=== PATIENT | male | born 1980 | race Caucasian/White ===

== ENCOUNTER 2024-01-04 22:23 | Inpatient (IN) ==
[2024-01-04] MEDS: OPTIRAY 320 125ml IV ONE (22:30)
--- NOTE | 2024-01-04 22:34 | Emergency Department Note ---
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 Again last about 5 to 7 minutes. Was sitting in the dining [place] and they were having a dance republican but he was just sitting there. No alcohol use tonight. Was sitting and leaning a little bit on his right hand when he went up to just 1 but has significant numbness and difficulty using his right hand and arm. [place] a little bit off and thought his speech was somewhat slurred. Went to the health [place] and was noted to have a blood pressure in the 180s systolic. Normally healthy gentleman not on blood pressure medicine. No syncope. States symptoms have resolved with the numbness and weakness. No issues in the legs or left arm. Speech is improved. Still feeling a bit off but a bit hard to describe exactly what this means. Did have a bit of a cough and had some TheraFlu before dinner. Has been stressed him with the busy Season and not sleeping the best. No rashes reported but exposure to ticks. PAST MEDICAL HISTORY: As noted above MEDICATIONS: None SOCIAL HISTORY: PHYSICAL EXAM: GENERAL: alert and oriented in no acute distress on stretcher Head: normocephalic and atraumatic EYES: No injection, discharge or icterus. PERRL, EOMI. NECK: Trachea midline. ENT: Mucous membranes pink and moist. LUNGS: Airway patent. No retractions or tachypnea HEART: Regular rate and rhythm. SKIN: Acyanotic, warm, dry, without rashes EXTREMITIES: Without swelling, tenderness or deformity NEUROLOGICAL: No focal deficits. No aphasia. No facial droop or slurred speech. No finger-nose ataxia. Normal strength and tone in the extremities. Sensation to gross touch normal. Ambulatory. EK bpm normal sinus rhythm. No PVC or PAC. No acute ST segment elevation or depression with a QTc of 425. CONTINUOUS CARDIAC MONITORING: was ordered and showed a heart rate of 60s to 70s bpm in normal sinus rhythm Patient's laboratory studies and imaging reviewed. Differential includes Infection, dehydration, metabolic abnormality, hypo/hyperglycemia, electrolyte disturbance, anemia, hypoxia, cardiac sources, intracerebral event, toxicologic, neurologic, as well as other pathologies. IMPRESSION/MEDICAL DECISION MAKING: Made a stroke alert as he was still feeling somewhat off but appears well at this time. No finger-nose ataxia or aphasia or slurred speech. No headache. Moving extremities well and no numbness or tingling appreciable. Able to ambulate and not significantly dizzy. Still hypertensive here. Basic blood work and Lyme screen sent. Given some IV fluid and aspirin as CTs of the head without evidence of acute intracranial bleed mass or vascular abnormality notable by radiology read. Doubt ICH/SAH. Not a thrombolytic candidate given his minimal to no symptoms at this time. It is difficult to quantify what not feeling what exactly is but that he is having some ongoing symptoms is a little bit concerning. As such I discussed with the [facility] hospitalist for further evaluation here and workup. Patient agreeable. Will not aggressively treat blood pressure in case this is CVA to allow for any progressive hypertensive but doubt hypertensive emergency or press syndrome. White blood cell count is reassuring and I doubt sepsis or meningitis. DIAGNOSIS: Strokelike symptoms, hypertension DISPOSITION: Hospitalist will evaluate Patient was agreeable with this plan. Past Med/Surg History Problem List (Updated 01/04/24 @ 23:31 by Mamadou Marcelo M.D.) HTN (hypertension) (Acute) Stroke-like symptoms (Acute) Social History Smoking Status: Never smoker Preferred Language: Belarusian Feels Safe at Home: Yes Allergies Allergies Allergy/AdvReac Type Severity Reaction Status Date / Time No Known Allergies Allergy Verified 01/04/24 23:16 Home Meds Home Medications Medication Instructions Recorded Confirmed No Known Home Medications 01/04/24 01/04/24 Results & Data (ED) Vital Signs Vital Signs - 24 hr 01/04/24 22:37 01/04/24 22:57 01/04/24 23:00 Temperature 36.6 C Temperature Source Oral Pulse Rate 81 66 Pulse Rate [Apical] 63 Pulse Rhythm [Apical] Regular Pulse Strength [Apical] Normal Respiratory Rate 18 16 Respiratory Effort / Characteristics Non-Labored Spontaneous Non-Labored Spontaneous Respiratory Depth Normal Normal Respiratory Pattern Regular Blood Pressure 180/111 H Blood Pressure [Right Arm] 135/98 Blood Pressure Mean 134 Blood Pressure Mean [Right Arm] 110 Blood Pressure Position [Right Arm] Semi-fowlers Pulse Oximetry 98 97 Oxygen Delivery Method Room Air Room Air Sepsis Recent Fever Within 48 Hours No Sepsis New/Unexplained Change in Mental Status No Sepsis Action Taken by Nursing No Action Required Laboratory Data 01/04/24 22:38 01/04/24 22:38 Lab Results 01/04/24 01/04/24 01/04/24 Range/Units 22:37 22:38 22:40 WBC 6.02 (4.8-10.8) K/ul RBC 4.86 (4.70-6.10) M/uL Hgb 14.2 (14.0-18.0) g/dl POC Hgb (14.0-18.0) g/dl Hct 41.8 L (42.0-52.0) % POC Hct (42-52) % MCV 86.0 (80.0-100.0) fL MCH 29.2 (25.0-34.0) pg MCHC 34.0 (32.0-36.0) g/dL RDW Std Deviation 37.0 (36.4-46.3) fL RDW Coeff of Josué 11.9 (11.5-14.5) % Plt Count 185 (130-400) K/uL MPV 9.3 L (9.4-12.4) fL Immature Gran % (Auto) 0.3 % Neut % (Auto) 61.8 % Lymph % (Auto) 24.4 % [place] % (Auto) 10.8 % Eos % (Auto) 2.0 % Baso % (Auto) 0.7 % Neut # (Auto) 3.72 (1.40-6.50) K/uL Lymph # (Auto) 1.47 (1.20-3.40) K/uL [place] # (Auto) 0.65 H (0.11-0.59) K/uL Eos # (Auto) 0.12 (0.00-0.50) K/uL Baso # (Auto) 0.04 (0.00-0.20) K/uL Immature Gran # (Auto) 0.02 (0.01-0.20) K/uL PT Cancelled INR Cancelled APTT Cancelled PTT Ratio Cancelled POC Sodium (135-144) mmol/L POC Potassium (3.3-5.0) mmol/L POC Chloride (101-112) mmol/L POC Total CO2 (24-31) mmol/L POC Anion Gap (16-25) mmol/L POC BUN (7-18) mg/dl POC Creatinine (0.6-1.3) mg/dl POC Glucose 99 (70-99) mg/dl POC Glucose (other) (70-99) mg/dl POC Ioniz Calcium [place] (1.12-1.32) mmol/l Urine Color Urine Appearance (Clear) Urine pH (4.5-7.5) Ur Specific [place] (1.000-1.030) Urine Protein (Negative) Urine Glucose (UA) (Negative) Urine Ketones (Negative) Urine Blood (Negative) Urine Nitrite (Negative) Urine Bilirubin (Negative) Urine Urobilinogen (Negative) Ur Leukocyte Esterase (Negative) Blood Type B Negative Antibody Screen NEGATIVE 01/04/24 01/04/24 Range/Units 22:41 22:42 WBC (4.8-10.8) K/ul RBC (4.70-6.10) M/uL Hgb (14.0-18.0) g/dl POC Hgb 13.6 L (14.0-18.0) g/dl Hct (42.0-52.0) % POC Hct 40 L (42-52) % MCV (80.0-100.0) fL MCH (25.0-34.0) pg MCHC (32.0-36.0) g/dL RDW Std Deviation (36.4-46.3) fL RDW Coeff of Josué (11.5-14.5) % Plt Count (130-400) K/uL MPV (9.4-12.4) fL Immature Gran % (Auto) % Neut % (Auto) % Lymph % (Auto) % [place] % (Auto) % Eos % (Auto) % Baso % (Auto) % Neut # (Auto) (1.40-6.50) K/uL Lymph # (Auto) (1.20-3.40) K/uL [place] # (Auto) (0.11-0.59) K/uL Eos # (Auto) (0.00-0.50) K/uL Baso # (Auto) (0.00-0.20) K/uL Immature Gran # (Auto) (0.01-0.20) K/uL PT INR APTT PTT Ratio POC Sodium 136 (135-144) mmol/L POC Potassium 3.8 (3.3-5.0) mmol/L POC Chloride 97 L (101-112) mmol/L POC Total CO2 27 (24-31) mmol/L POC Anion Gap 17.0 (16-25) mmol/L POC BUN 12 (7-18) mg/dl POC Creatinine 1.1 (0.6-1.3) mg/dl POC Glucose (70-99) mg/dl POC Glucose (other) 102 H (70-99) mg/dl POC Ioniz Calcium [place] 1.16 (1.12-1.32) mmol/l Urine Color Yellow Urine Appearance Clear (Clear) Urine pH 7.0 (4.5-7.5) Ur Specific [place] 1.011 (1.000-1.030) Urine Protein Negative (Negative) Urine Glucose (UA) Negative (Negative) Urine Ketones Negative (Negative) Urine Blood Negative (Negative) Urine Nitrite Negative (Negative) Urine Bilirubin Negative (Negative) Urine Urobilinogen Negative (Negative) Ur Leukocyte Esterase Negative (Negative) Blood Type Antibody Screen Administered Medications Discontinued Medications Aspirin (Aspirin Chew 324 Mg) 324 mg PO NOW STA Stop: 01/04/24 22:59 Last Admin: 01/04/24 23:26 Dose: 324 mg Documented By: KEZIA Sodium Chloride (Nss) 500 mls @ 999 mls/hr IV .Q31M ONE Stop: 01/04/24 23:26 Last Admin: 01/04/24 23:21 Dose: 999 mls/hr Documented By: KEZIA Ioversol (Optiray 320 125ml) 118 ml IV ONCE ONE Stop: 01/04/24 22:30 Last Admin: 01/04/24 22:30 Dose: 118 ml Documented By: [facility] Data Radiologist's Impression: Head CT 01/04/24 22:19 CR Exam(s): CT HEAD Without Contrast EXAM: CT Head Without Intravenous Contrast CLINICAL HISTORY: Neuro deficit, acute stroke suspected. TECHNIQUE: Axial computed tomography images of the head/brain without intravenous contrast. CTDI is 47.66 mGy and DLP is 1287.52 mGy-cm. Automated exposure control was utilized for the study. A dose lowering technique was utilized adhering to the principles of ALARA. COMPARISON: No relevant prior studies available. FINDINGS: Brain: Unremarkable. No significant white matter disease. No intracranial hemorrhage, mass-effect or midline shift. No abnormal extra axial fluid. No evidence of acute infarct. Ventricles: Unremarkable. No ventriculomegaly. Bones/joints: Unremarkable. No acute fracture. Soft tissues: Unremarkable. Sinuses: Unremarkable as visualized. No acute sinusitis. Mastoid air cells: Unremarkable as visualized. No mastoid effusion. IMPRESSION: No acute intracranial finding. Communications: Call Doctor Stroke Electronically signed by: Laurence Cartagena MD 01/04/24 22:45 PM Head CTA 01/04/24 22:19 CR Exam(s): CTA HEAD With Contrast IV Amt: 118 cc opti 320 EXAM: CT Angiography Head With Intravenous Contrast CLINICAL HISTORY: neuro deficit, acute stroke suspected. TECHNIQUE: Axial computed tomographic angiography images of the head with intravenous contrast. 3D and MIPS images were created and reviewed. CTDI is 47.66 mGy and DLP is 1287.52 mGy-cm. Automated exposure control was utilized for the study. A dose lowering technique was utilized adhering to the principles of ALARA. MIP reconstructed images were created and reviewed. CONTRAST: Patient received 118 cc opti 320 of IV contrast COMPARISON: No relevant prior studies available. FINDINGS: Right internal carotid artery: No acute findings. Intracranial segment is patent with no significant stenosis. No aneurysm. Right anterior cerebral artery: Unremarkable. No occlusion or significant stenosis. No aneurysm. Right middle cerebral artery: Unremarkable. No occlusion or significant stenosis. No aneurysm. Right posterior cerebral artery: Unremarkable. No occlusion or significant stenosis. No aneurysm. Right vertebral artery: Unremarkable as visualized. Left internal carotid artery: No acute findings. Intracranial segment is patent with no significant stenosis. No aneurysm. Left anterior cerebral artery: Unremarkable. No occlusion or significant stenosis. No aneurysm. Left middle cerebral artery: Unremarkable. No occlusion or significant stenosis. No aneurysm. Left posterior cerebral artery: Unremarkable. No occlusion or significant stenosis. No aneurysm. Left vertebral artery: Unremarkable as visualized. Basilar artery: Unremarkable. No occlusion or significant stenosis. No aneurysm. IMPRESSION: No acute finding of the arteries of the head. Communications: Call Doctor Stroke Electronically signed by: Laurence Cartagena MD 01/04/24 22:59 PM Neck CTA 01/04/24 22:19 CR Exam(s): CTA NECK With Contrast IV Amt: 118 cc opti 320 EXAM: CT Angiography Neck With Intravenous Contrast CLINICAL HISTORY: Neuro deficit, acute stroke suspected. TECHNIQUE: Routine carotid CT angiography protocol was performed with intravenous contrast. NASCET criteria using the distal ICAs for comparison were used for evaluation of stenoses. MIPS images were created and reviewed. CTDI is 47.66 mGy and DLP is 1287.52 mGy-cm. Automated exposure control was utilized for the study. A dose lowering technique was utilized adhering to the principles of ALARA. MIP reconstructed images were created and reviewed. CONTRAST: Patient received 118 cc opti 320 of IV contrast COMPARISON: None. FINDINGS: VASCULATURE: Right common carotid artery: Unremarkable. No occlusion or significant stenosis. No dissection. Right internal carotid artery: Unremarkable. Extracranial segment is patent with no occlusion or significant stenosis. No dissection. Right external carotid artery: Unremarkable. No occlusion. Right vertebral artery: Unremarkable. No occlusion or significant stenosis. No dissection. Left common carotid artery: Unremarkable. No occlusion or significant stenosis. No dissection. Left internal carotid artery: Unremarkable. Extracranial segment is patent with no occlusion or significant stenosis. No dissection. Left external carotid artery: Unremarkable. No occlusion. Left vertebral artery: Unremarkable. No occlusion or significant stenosis. No dissection. NECK: Bones/joints: Unremarkable. No acute fracture. Soft tissues: Unremarkable. Lung apices: Clear. CAROTID STENOSIS REFERENCE USING NASCET CRITERIA: % ICA stenosis = (1 - narrowest ICA diameter/diameter of distal cervical ICA) x 100. Mild - <50% stenosis. Moderate - 50-69% stenosis. Severe - 70-94% stenosis. Near occlusion - 95-99% stenosis. Occluded - 100% stenosis. IMPRESSION: No acute finding of the arteries of the neck. Communications: Call Doctor Stroke Electronically signed by: Laurence Cartagena MD 01/04/24 23:03 PM Discharge Plan Visit Data Chief Complaint: TIA Symptoms Stated Complaint: R ARM TINGLING/NUMB, SLURRED SPEECH, RESOLVED NOW ED Provider: Mamadou Marcelo Discharge Problem: Stroke-like symptoms, HTN (hypertension) Patient Disposition: Being Evaluated by Hospitalist Forms Stand Alone Forms: My ETC Education Prescriptions Prescriptions: No Action No Known Home Medications Referrals Referrals: PCP,NO [Primary Care Provider] -
--- NOTE | 2024-01-04 22:45 | CT Scan Report ---
Exam(s): CT HEAD Without Contrast EXAM: CT Head Without Intravenous Contrast CLINICAL HISTORY: Neuro deficit, acute stroke suspected. TECHNIQUE: Axial computed tomography images of the head/brain without intravenous contrast. CTDI is 47.66 mGy and DLP is 1287.52 mGy-cm. Automated exposure control was utilized for the study. A dose lowering technique was utilized adhering to the principles of ALARA. COMPARISON: No relevant prior studies available. FINDINGS: Brain: Unremarkable. No significant white matter disease. No intracranial hemorrhage, mass-effect or midline shift. No abnormal extra axial fluid. No evidence of acute infarct. Ventricles: Unremarkable. No ventriculomegaly. Bones/joints: Unremarkable. No acute fracture. Soft tissues: Unremarkable. Sinuses: Unremarkable as visualized. No acute sinusitis. Mastoid air cells: Unremarkable as visualized. No mastoid effusion. IMPRESSION: No acute intracranial finding. Communications: Call Doctor Stroke Electronically signed by: Laurence Cartagena MD 01/04/24 22:45 PM
[2024-01-04 22:53] LABS: Basophils # (auto) 0.04 K/uL (0.00-0.20); Basophils % (auto) 0.7 %; Eosinophils # (auto) 0.12 K/uL (0.00-0.50); Hematocrit (blood only) 41.8 % (42.0-52.0); Hemoglobin 14.2 g/dl (14.0-18.0); Immature Granulocytes # (auto) 0.02 K/uL (0.01-0.20); Immature Granulocytes % (auto) 0.3 %; Lymphocytes # (auto) 1.47 K/uL (1.20-3.40); Lymphocytes % (auto) 24.4 %; Mean Corpuscular Hemoglobin 29.2 pg (25.0-34.0); Mean Platelet Volume 9.3 fL (9.4-12.4); Monocytes # (auto) 0.65 K/uL (0.11-0.59); Monocytes % (auto) 10.8 %; Neutrophils # (auto) 3.72 K/uL (1.40-6.50); Neutrophils % (auto) 61.8 %; Platelet Count 185 K/uL (130-400); RDW Coefficient of Variation 11.9 % (11.5-14.5); Red Blood Count 4.86 M/uL (4.70-6.10); White Blood Count 6.02 K/ul (4.8-10.8)
[2024-01-04 22:53] LABS: iSTAT Creatinine 1.1 mg/dl (0.6-1.3); iSTAT Hemoglobin 13.6 g/dl (14.0-18.0); iSTAT Ionized Calcium 1.16 mmol/l (1.12-1.32); iSTAT Potassium 3.8 mmol/L (3.3-5.0)
[2024-01-04 22:56] LABS: Appearance Urine Clear (Clear); Bilirubin Urine Negative (Negative); Blood Urine Negative (Negative); Color Urine Yellow; Glucose Urine UA Negative (Negative); Ketones Urine Negative (Negative); Leukocyte Esterase Urine Negative (Negative); Nitrite Urine Negative (Negative); Protein Urine Negative (Negative); Specific Gravity Urine 1.011 (1.000-1.030); Urobilinogen Urine Negative (Negative)
--- NOTE | 2024-01-04 23:00 | CT Scan Report ---
Exam(s): CTA HEAD With Contrast IV Amt: 118 cc opti 320 EXAM: CT Angiography Head With Intravenous Contrast CLINICAL HISTORY: neuro deficit, acute stroke suspected. TECHNIQUE: Axial computed tomographic angiography images of the head with intravenous contrast. 3D and MIPS images were created and reviewed. CTDI is 47.66 mGy and DLP is 1287.52 mGy-cm. Automated exposure control was utilized for the study. A dose lowering technique was utilized adhering to the principles of ALARA. MIP reconstructed images were created and reviewed. CONTRAST: Patient received 118 cc opti 320 of IV contrast COMPARISON: No relevant prior studies available. FINDINGS: Right internal carotid artery: No acute findings. Intracranial segment is patent with no significant stenosis. No aneurysm. Right anterior cerebral artery: Unremarkable. No occlusion or significant stenosis. No aneurysm. Right middle cerebral artery: Unremarkable. No occlusion or significant stenosis. No aneurysm. Right posterior cerebral artery: Unremarkable. No occlusion or significant stenosis. No aneurysm. Right vertebral artery: Unremarkable as visualized. Left internal carotid artery: No acute findings. Intracranial segment is patent with no significant stenosis. No aneurysm. Left anterior cerebral artery: Unremarkable. No occlusion or significant stenosis. No aneurysm. Left middle cerebral artery: Unremarkable. No occlusion or significant stenosis. No aneurysm. Left posterior cerebral artery: Unremarkable. No occlusion or significant stenosis. No aneurysm. Left vertebral artery: Unremarkable as visualized. Basilar artery: Unremarkable. No occlusion or significant stenosis. No aneurysm. IMPRESSION: No acute finding of the arteries of the head. Communications: Call Doctor Stroke Electronically signed by: Laurence Cartagena MD 01/04/24 22:59 PM
--- NOTE | 2024-01-04 23:04 | CT Scan Report ---
Exam(s): CTA NECK With Contrast IV Amt: 118 cc opti 320 EXAM: CT Angiography Neck With Intravenous Contrast CLINICAL HISTORY: Neuro deficit, acute stroke suspected. TECHNIQUE: Routine carotid CT angiography protocol was performed with intravenous contrast. NASCET criteria using the distal ICAs for comparison were used for evaluation of stenoses. MIPS images were created and reviewed. CTDI is 47.66 mGy and DLP is 1287.52 mGy-cm. Automated exposure control was utilized for the study. A dose lowering technique was utilized adhering to the principles of ALARA. MIP reconstructed images were created and reviewed. CONTRAST: Patient received 118 cc opti 320 of IV contrast COMPARISON: None. FINDINGS: VASCULATURE: Right common carotid artery: Unremarkable. No occlusion or significant stenosis. No dissection. Right internal carotid artery: Unremarkable. Extracranial segment is patent with no occlusion or significant stenosis. No dissection. Right external carotid artery: Unremarkable. No occlusion. Right vertebral artery: Unremarkable. No occlusion or significant stenosis. No dissection. Left common carotid artery: Unremarkable. No occlusion or significant stenosis. No dissection. Left internal carotid artery: Unremarkable. Extracranial segment is patent with no occlusion or significant stenosis. No dissection. Left external carotid artery: Unremarkable. No occlusion. Left vertebral artery: Unremarkable. No occlusion or significant stenosis. No dissection. NECK: Bones/joints: Unremarkable. No acute fracture. Soft tissues: Unremarkable. Lung apices: Clear. CAROTID STENOSIS REFERENCE USING NASCET CRITERIA: % ICA stenosis = (1 - narrowest ICA diameter/diameter of distal cervical ICA) x 100. Mild - <50% stenosis. Moderate - 50-69% stenosis. Severe - 70-94% stenosis. Near occlusion - 95-99% stenosis. Occluded - 100% stenosis. IMPRESSION: No acute finding of the arteries of the neck. Communications: Call Doctor Stroke Electronically signed by: Laurence Cartagena MD 01/04/24 23:03 PM
[2024-01-04] MEDS: SODIUM CHLORIDE 0.9% 500 ML IV ONE (23:21)
[2024-01-04] MEDS: ASPIRIN CHEW 324 MG PO STA (23:26)
[2024-01-04 23:45] LABS: Albumin Level 4.3 gm/dl (3.4-5.0); BUN Creatinine Ratio 13.3 (10-20); Bilirubin,Total 0.7 mg/dl (0.2-1.0); Creatinine Clr Calc Pharmacy 125.2 ml/min; Est GFR (Non-African American) 94.1 ml/min; Globulin 2.1 gm/dl (2.5-4.0); Magnesium 1.9 mg/dl (1.7-2.4); Potassium 3.7 mmol/L (3.5-5.1); Total Protein 6.4 gm/dl (6.0-8.3); Troponin I High Sensitivity 4.4 pg/ml (0-20)
[2024-01-04 23:51] LABS: INR 1.1 (0.9-1.1); Partial Thromboplastin Ratio 0.9; Partial Thromboplastin Time 25 Seconds (21-31); Prothrombin Time 11.4 Seconds (9.0-12.0)
--- NOTE | 2024-01-05 02:28 | History & Physical Report ---
Date of Service January 05, 2024 Assessment & Plan (1) Stroke-like symptoms: Plan: 43-year-old male with no significant past medical history presents with strokelike symptoms. Patient was in a summer camp. There was dance constitution party but he was just sitting and watching. Around 9 PM he noticed numbness in his right hand. He could not uncork water bottle. At the time he also felt some slurred speech and slow speech. He went to [employer] and the blood pressure was checked and [id number]. Symptoms lasted 15 to 20 minutes. EMS was called and brought him here. Patient was a stroke alert. Initial workup unremarkable. Patient denies any headache. No dizziness. Says he was ambulating okay. No blurred vision . Has some congestion. And some sore throat. No cough. No fevers. No difficulty swallowing. No chest pain. No shortness of breath. No nausea. No sweating. No abdominal pain. Normal bowel and bladder movements. Currently resting comfortably and hemodynamically stable. He did some yard work recently but did not notice any tick bites. As per history father had AK in his 50s. As per patient his brother had SVTs in his 50s. strokelike symptoms. Transient numbness of the right hand and slurred speech. CT head, CTA head and neck unremarkable received aspirin. Will do full stroke workup with MRI scan, echo, PT OT and speech evaluation. Will start a statin. Will follow HbA1c and lipid profile. Telemetry lyme screen, anaplasma smear and Babesia smear neuroconsult in a.m. for further recommendations hypertension possible situational will monitor will follow echo DVT prophylaxis SCDs disposition telemetry full code. History of Present Illness Chief Complaint: Strokelike symptoms Primary Care Provider: NO PCP 43-year-old male with no significant past medical history presents with strokelike symptoms. Patient was in a summer camp. There was dance constitution party but he was just sitting and watching. Around 9 PM he noticed numbness in his right hand. He could not uncork water bottle. At the time he also felt some slurred speech and slow speech. He went to [employer] and the blood pressure was checked and [id number]. Symptoms lasted 15 to 20 minutes. EMS was called and brought him here. Patient was a stroke alert. Initial workup unremarkable. Patient denies any headache. No dizziness. Says he was ambulating okay. No blurred vision . Has some congestion. And some sore throat. No cough. No fevers. No difficulty swallowing. No chest pain. No shortness of breath. No nausea. No sweating. No abdominal pain. Normal bowel and bladder movements. Currently resting comfortably and hemodynamically stable. He did some yard work recently but did not notice any tick bites. As per history father had AK in his 50s. As per patient his brother had SVTs in his 50s. past medical history. As mentioned above past surgical history. None social history. No smoking. Alcohol rarely. No drug use. . Family history. Father had bladder cancer. Diabetes. AK in 50s. Brother had SVTs. Mother had hypertension. Allergies Allergy/AdvReac Type Severity Reaction Status Date / Time No Known Allergies Allergy Verified 01/04/24 23:16 Home Medications Medication Instructions Recorded Confirmed Type No Known Home Medications 01/04/24 01/04/24 History Past Med/Surg History Problem List (Updated 01/04/24 @ 23:31 by Mamadou Marcelo M.D.) HTN (hypertension) (Acute) Stroke-like symptoms (Acute) Social History Smoking Status: Never smoker Do You Dip or Chew Tobacco: No; Hx Alcohol Use: Yes Alcohol type: beer Hx Substance Use: No Preferred Language: Latvian Communication Ability: [employer] Required: No Beliefs That Will Affect Care: None Current Living Situation: Spouse Other Information That Helps Us Care for You: No Feels Safe at Home: Yes Safety Concerns: Feels Safe At This Time Assistive Devices: None Review of Systems Review of Systems: All systems reviewed & are unremarkable except as noted in HPI & below Physical Exam Physical Exam: General- Not in distress Head- atraumatic Eyes- EOMI. ENT- oropharynx clear Neck- supple, no JVD no carotid bruit Lungs- clear to auscultation no wheezing or crackles. Heart- regular rate and rhythm; no murmur, no gallop. Abdomen- normal bowel sounds, soft, nontender, no distension. Extremities- no pretibial edema, no erythema seen. Neuro- alert, oriented EOMI; no facial palsy; no dysarthria; motor 5/5 bilaterally; co ordination of movements normal, no pronator drift sensations intact Results & Data Results & Data Vital Signs (Past 12 Hours) Vital Signs Temp Pulse Pulse Resp BP BP Pulse Ox 01/04/24 23:00 63 16 135/98 97 01/04/24 22:57 66 01/04/24 22:37 36.6 C 81 18 180/111 H 98 O2 Del Method 01/04/24 23:00 Room Air 01/04/24 22:57 01/04/24 22:37 Room Air Diagnostic Findings Laboratory Results WBC 6.02 K/ul (4.8-10.8) 01/04/24 22:38 RBC 4.86 M/uL (4.70-6.10) 01/04/24 22:38 Hgb 14.2 g/dl (14.0-18.0) 01/04/24 22:38 POC Hgb 13.6 g/dl (14.0-18.0) L 01/04/24 22:41 Hct 41.8 % (42.0-52.0) L 01/04/24 22:38 POC Hct 40 % (42-52) L 01/04/24 22:41 MCV 86.0 fL (80.0-100.0) 01/04/24 22:38 MCH 29.2 pg (25.0-34.0) 01/04/24 22:38 MCHC 34.0 g/dL (32.0-36.0) 01/04/24 22:38 RDW Std Deviation 37.0 fL (36.4-46.3) 01/04/24 22:38 RDW Coeff of Josué 11.9 % (11.5-14.5) 01/04/24 22:38 Plt Count 185 K/uL (130-400) 01/04/24 22:38 MPV 9.3 fL (9.4-12.4) L 01/04/24 22:38 Immature Gran % (Auto) 0.3 % 01/04/24 22:38 Neut % (Auto) 61.8 % 01/04/24 22:38 Lymph % (Auto) 24.4 % 01/04/24 22:38 [place] % (Auto) 10.8 % 01/04/24 22:38 Eos % (Auto) 2.0 % 01/04/24 22:38 Baso % (Auto) 0.7 % 01/04/24 22:38 Neut # (Auto) 3.72 K/uL (1.40-6.50) 01/04/24 22:38 Lymph # (Auto) 1.47 K/uL (1.20-3.40) 01/04/24 22:38 [place] # (Auto) 0.65 K/uL (0.11-0.59) H 01/04/24 22:38 Eos # (Auto) 0.12 K/uL (0.00-0.50) 01/04/24 22:38 Baso # (Auto) 0.04 K/uL (0.00-0.20) 01/04/24 22:38 Immature Gran # (Auto) 0.02 K/uL (0.01-0.20) 01/04/24 22:38 PT 11.4 Seconds (9.0-12.0) 01/04/24 23:15 INR 1.1 (0.9-1.1) 01/04/24 23:15 APTT 25 Seconds (21-31) 01/04/24 23:15 PTT Ratio 0.9 01/04/24 23:15 POC Sodium 136 mmol/L (135-144) 01/04/24 22:41 Sodium 134 mmol/L (136-145) L 01/04/24 22:38 POC Potassium 3.8 mmol/L (3.3-5.0) 01/04/24 22:41 Potassium 3.7 mmol/L (3.5-5.1) 01/04/24 22:38 POC Chloride 97 mmol/L (101-112) L 01/04/24 22:41 Chloride 100 mmol/L (98-107) 01/04/24 22:38 Carbon Dioxide 29 mmol/L (21-32) 01/04/24 22:38 POC Total CO2 27 mmol/L (24-31) 01/04/24 22:41 Anion Gap 5 (3-11) 01/04/24 22:38 POC Anion Gap 17.0 mmol/L (16-25) 01/04/24 22:41 POC BUN 12 mg/dl (7-18) 01/04/24 22:41 BUN 13 mg/dl (6-23) 01/04/24 22:38 Creatinine 0.98 mg/dl (0.6-1.4) 01/04/24 22:38 POC Creatinine 1.1 mg/dl (0.6-1.3) 01/04/24 22:41 Est Cr Clr Drug Dosing 125.2 ml/min 01/04/24 22:38 Est GFR ( Amer) 109.0 ml/min 01/04/24 22:38 Est GFR (Non-Af Amer) 94.1 ml/min 01/04/24 22:38 BUN/Creatinine Ratio 13.3 (10-20) 01/04/24 22:38 Glucose 99 mg/dl (70-99(Fasting)) 01/04/24 22:38 POC Glucose 99 mg/dl (70-99) 01/04/24 22:37 POC Glucose (other) 102 mg/dl (70-99) H 01/04/24 22:41 Calcium 9.0 mg/dl (8.6-10.3) 01/04/24 22:38 POC Ioniz Calcium Guero 1.16 mmol/l (1.12-1.32) 01/04/24 22:41 Magnesium 1.9 mg/dl (1.7-2.4) 01/04/24 22:38 Total Bilirubin 0.7 mg/dl (0.2-1.0) 01/04/24 22:38 AST 22 U/L (13-39) 01/04/24 22:38 ALT 15 U/L (7-52) 01/04/24 22:38 Alkaline Phosphatase 56 U/L (34-104) 01/04/24 22:38 Troponin I High Sens 4.4 pg/ml (0-20) 01/04/24 22:38 Total Protein 6.4 gm/dl (6.0-8.3) 01/04/24 22:38 Albumin 4.3 gm/dl (3.4-5.0) 01/04/24 22:38 Globulin 2.1 gm/dl (2.5-4.0) L 01/04/24 22:38 Albumin/Globulin Ratio 2.0 (0.9-2) 01/04/24 22:38 Urine Color Yellow 01/04/24 22:42 Urine Appearance Clear (Clear) 01/04/24 22:42 Urine pH 7.0 (4.5-7.5) 01/04/24 22:42 Ur Specific [place] 1.011 (1.000-1.030) 01/04/24 22:42 Urine Protein Negative (Negative) 01/04/24 22:42 Urine Glucose (UA) Negative (Negative) 01/04/24 22:42 Urine Ketones Negative (Negative) 01/04/24 22:42 Urine Blood Negative (Negative) 01/04/24 22:42 Urine Nitrite Negative (Negative) 01/04/24 22:42 Urine Bilirubin Negative (Negative) 01/04/24 22:42 Urine Urobilinogen Negative (Negative) 01/04/24 22:42 Ur Leukocyte Esterase Negative (Negative) 01/04/24 22:42 Anaplasma Smear See Comment 01/04/24 22:38 Babesia Smear See Comment 01/04/24 22:38 Lyme Disease Screen Negative (Negative) 01/04/24 22:38 Blood Type B Negative 01/04/24 22:40 Antibody Screen NEGATIVE 01/04/24 22:[address] 01/04/24 22:19 CR Exam(s): CT HEAD Without Contrast EXAM: CT Head Without Intravenous Contrast CLINICAL HISTORY: Neuro deficit, acute stroke suspected. TECHNIQUE: Axial computed tomography images of the head/brain without intravenous contrast. CTDI is 47.66 mGy and DLP is 1287.52 mGy-cm. Automated exposure control was utilized for the study. A dose lowering technique was utilized adhering to the principles of ALARA. COMPARISON: No relevant prior studies available. FINDINGS: Brain: Unremarkable. No significant white matter disease. No intracranial hemorrhage, mass-effect or midline shift. No abnormal extra axial fluid. No evidence of acute infarct. Ventricles: Unremarkable. No ventriculomegaly. Bones/joints: Unremarkable. No acute fracture. Soft tissues: Unremarkable. Sinuses: Unremarkable as visualized. No acute sinusitis. Mastoid air cells: Unremarkable as visualized. No mastoid effusion. IMPRESSION: No acute intracranial finding. Communications: Call Doctor Stroke Electronically signed by: Laurence Cartagena MD 01/04/24 22:45 PM Head CTA 01/04/24 22:19 CR Exam(s): CTA HEAD With Contrast IV Amt: 118 cc opti 320 EXAM: CT Angiography Head With Intravenous Contrast CLINICAL HISTORY: neuro deficit, acute stroke suspected. TECHNIQUE: Axial computed tomographic angiography images of the head with intravenous contrast. 3D and MIPS images were created and reviewed. CTDI is 47.66 mGy and DLP is 1287.52 mGy-cm. Automated exposure control was utilized for the study. A dose lowering technique was utilized adhering to the principles of ALARA. MIP reconstructed images were created and reviewed. CONTRAST: Patient received 118 cc opti 320 of IV contrast COMPARISON: No relevant prior studies available. FINDINGS: Right internal carotid artery: No acute findings. Intracranial segment is patent with no significant stenosis. No aneurysm. Right anterior cerebral artery: Unremarkable. No occlusion or significant stenosis. No aneurysm. Right middle cerebral artery: Unremarkable. No occlusion or significant stenosis. No aneurysm. Right posterior cerebral artery: Unremarkable. No occlusion or significant stenosis. No aneurysm. Right vertebral artery: Unremarkable as visualized. Left internal carotid artery: No acute findings. Intracranial segment is patent with no significant stenosis. No aneurysm. Left anterior cerebral artery: Unremarkable. No occlusion or significant stenosis. No aneurysm. Left middle cerebral artery: Unremarkable. No occlusion or significant stenosis. No aneurysm. Left posterior cerebral artery: Unremarkable. No occlusion or significant stenosis. No aneurysm. Left vertebral artery: Unremarkable as visualized. Basilar artery: Unremarkable. No occlusion or significant stenosis. No aneurysm. IMPRESSION: No acute finding of the arteries of the head. Communications: Call Doctor Stroke Electronically signed by: Laurence Cartagena MD 01/04/24 22:59 PM Neck CTA 01/04/24 22:19 CR Exam(s): CTA NECK With Contrast IV Amt: 118 cc opti 320 EXAM: CT Angiography Neck With Intravenous Contrast CLINICAL HISTORY: Neuro deficit, acute stroke suspected. TECHNIQUE: Routine carotid CT angiography protocol was performed with intravenous contrast. NASCET criteria using the distal ICAs for comparison were used for evaluation of stenoses. MIPS images were created and reviewed. CTDI is 47.66 mGy and DLP is 1287.52 mGy-cm. Automated exposure control was utilized for the study. A dose lowering technique was utilized adhering to the principles of ALARA. MIP reconstructed images were created and reviewed. CONTRAST: Patient received 118 cc opti 320 of IV contrast COMPARISON: None. FINDINGS: VASCULATURE: Right common carotid artery: Unremarkable. No occlusion or significant stenosis. No dissection. Right internal carotid artery: Unremarkable. Extracranial segment is patent with no occlusion or significant stenosis. No dissection. Right external carotid artery: Unremarkable. No occlusion. Right vertebral artery: Unremarkable. No occlusion or significant stenosis. No dissection. Left common carotid artery: Unremarkable. No occlusion or significant stenosis. No dissection. Left internal carotid artery: Unremarkable. Extracranial segment is patent with no occlusion or significant stenosis. No dissection. Left external carotid artery: Unremarkable. No occlusion. Left vertebral artery: Unremarkable. No occlusion or significant stenosis. No dissection. NECK: Bones/joints: Unremarkable. No acute fracture. Soft tissues: Unremarkable. Lung apices: Clear. CAROTID STENOSIS REFERENCE USING NASCET CRITERIA: % ICA stenosis = (1 - narrowest ICA diameter/diameter of distal cervical ICA) x 100. Mild - <50% stenosis. Moderate - 50-69% stenosis. Severe - 70-94% stenosis. Near occlusion - 95-99% stenosis. Occluded - 100% stenosis. IMPRESSION: No acute finding of the arteries of the neck. Communications: Call Doctor Stroke Electronically signed by: Laurence Cartagena MD 01/04/24 23:03 PM ECG Additional Comments: ECG. Normal sinus rhythm rate of 76. No acute ST changes seen. QTc 425. Code Status & VTE Plan VTE Prophylaxis Plan VTE Prophylaxis will be ordered: Yes
[2024-01-05] MEDS ORDERED: PHARMACIST DISCHARGE MED REC CONSULT PRN (04:22)
[2024-01-05] MEDS ORDERED: NITROGLYCERIN SL 0.4 MG/TAB TAB SL PRN (04:22)
[2024-01-05] MEDS ORDERED: POLYETHYLENE (MIRALAX) 17 GM PACK PO PRN (04:22)
[2024-01-05] MEDS ORDERED: ACETAMINOPHEN 325 MG TAB PO PRN (04:22)
[2024-01-05] MEDS: SODIUM CHLORIDE 0.9% 1,000 ML IV SCH (05:02)
[2024-01-05 05:57] LABS: Basophils # (auto) 0.04 K/uL (0.00-0.20); Basophils % (auto) 0.7 %; Eosinophils # (auto) 0.07 K/uL (0.00-0.50); Eosinophils % (auto) 1.3 %; Hematocrit (blood only) 39.8 % (42.0-52.0); Hemoglobin 13.7 g/dl (14.0-18.0); Immature Granulocytes # (auto) 0.01 K/uL (0.01-0.20); Immature Granulocytes % (auto) 0.2 %; Lymphocytes # (auto) 1.35 K/uL (1.20-3.40); Lymphocytes % (auto) 24.3 %; Mean Corpuscular Hemoglobin 29.7 pg (25.0-34.0); Mean Corpuscular Hgb Conc 34.4 g/dL (32.0-36.0); Mean Corpuscular Volume 86.1 fL (80.0-100.0); Mean Platelet Volume 9.7 fL (9.4-12.4); Monocytes # (auto) 0.56 K/uL (0.11-0.59); Monocytes % (auto) 10.1 %; Neutrophils # (auto) 3.52 K/uL (1.40-6.50); Neutrophils % (auto) 63.4 %; Platelet Count 178 K/uL (130-400); RDW Coefficient of Variation 11.9 % (11.5-14.5); RDW Standard Deviation 37.2 fL (36.4-46.3); Red Blood Count 4.62 M/uL (4.70-6.10); White Blood Count 5.55 K/ul (4.8-10.8)
[2024-01-05 06:13] LABS: Calcium 8.7 mg/dl (8.6-10.3); Potassium 3.6 mmol/L (3.5-5.1)
[2024-01-05 06:19] LABS: BUN Creatinine Ratio 10.5 (10-20); Chol HDL Ratio 3.1 (0-5); Creatinine Clr Calc Pharmacy 124.6 ml/min; Est GFR (African American) 113.2 ml/min; Est GFR (Non-African American) 97.6 ml/min
[2024-01-05 07:54] LABS: Estimated Average Glucose 114 mg/dl; Hemoglobin A1C 5.6 % (4.5-5.6)
[2024-01-05] MEDS: ROSUVASTATIN CALCIUM 20 MG TAB PO SCH (08:06)
[2024-01-05] MEDS: ASPIRIN 81 MG ECTAB PO SCH (08:06)
[2024-01-05] MEDS: GADOBUTROL 65ML VIAL IV ONE (09:23)
--- NOTE | 2024-01-05 09:53 | Magnetic Resonance Report ---
MR brain wo/w con CLINICAL HISTORY: stroke like symptoms TECHNIQUE: Multiplanar and multisequence MR images of the brain were obtained prior to and following administration of gadolinium contrast. Comparison: None available at the time of this dictation. FINDINGS: No abnormal restricted diffusion is identified. The white matter is unremarkable. The ventricular sys tem is normal in appearance. No mass or abnormal enhancement is seen. There is no mass effect or midl ine shift. There is no evidence of acute intraparenchymal hemorrhage. No extra axial fluid collection s are seen. The corpus callosum, pituitary gland, and cerebellar tonsils appear grossly unremarkable. Flow voids of the major intracranial arterial vessels are identified. The imaged portions of the para nasal sinuses, mastoid air cells, and orbits are unremarkable. IMPRESSION: No acute abnormalities. ACT 112: Negative or not required by law. Electronically signed by: Phong Arnold M.D. 01/05/2024 9:52 AM
--- OUTSIDE RECORDS SUMMARY | 2024-01-05 11:16 | External Medical Summary ---
Author Name Unknown Address Unknown Organization [id number]:[facility] [place] - [address] [place] [address] Laboratory Report Ordering Provider Test Date Status SHEREEN BOOTHE 10/20/2023 10:48:43 Final Observation Date Value Abnormality Reference (Units ) Status MYCODE SPECIMEN-SST 10/20/2023 10:48:43 Freezing of extracted DNA, whole blood and/or serum. Final Performing Location [facility] [place] [facility] [address] [facility] [address]
--- OUTSIDE RECORDS SUMMARY | 2024-01-05 11:16 | External Medical Summary | Summary of Care ---
Author Name Unknown Organization [facility] Address [address] [place] [address] Phone [phone] Care Team Providers Care Card Feeder Name Role Phone Janak Jacome MD Primary Care Provider [phone] Encounter Details Date Type Department Care Team (Late st Contact Info) Description 10/27/2023 Orders Only Outcomes Research Department [address] [place] [address] Verónica Torres [facility] Research Other*[id number] Allergies No known active allergiesdocumented as of this encounter (statuses as of 10/27/2023) Medications No known medicationsdocumented as of this encounter (statuses as of 10/27/2023) Active Problems Problem Noted Date Diagnosed Date Overweight (BMI 25.0-29.9) 10/20/2023 documented as of this encounter (statuses as of 10/27/2023) Resolved Problems Problem Noted Date Diagnosed Date Resolved Date Hematospermia 09/19/2014 11/16/2015 Nasal congestion 12/17/2011 11/16/2015 Screening for cardiovascular condition 11/21/2011 10/20/2023 General medical exam 11/21/2011 024 Pain, neck 11/21/2011 11/16/2015 Painful knee 11/21/2011 11/16/2015 documented as of this encounter (statuses as of 10/27/2023) Immunizations Name Administration Dates Next Due TDAP (age 10 and older)(Boostrix) 12/17/2011 documented as of this encounter Social History Tobacco Use Types Packs/Day Years Used Date Smoking Tobacco: Never Smokeless Tobacco: Never Alcohol Use Standard Drinks/Week Comments Yes 0 (1 standard drink = 0.6 oz pur e alcohol) rare PHQ-2 Answer Date Recorded PHQ-2 Score 0 12/15/2019 Sex and Gender Information Value Date Recorded Sex Assigned at Not on file Gender Identity Not on file Sexual Orientation Not on file Job Start Date Occupation Industry Not on file Not on file Not on file documented as of this encounter Plan of Treatment Upcoming Encounters Date Type Department Care Team (Late st Contact Info) Description 10/21/2024 8:40 AM EDT Office Visit [facility] [address] [place] [address] Janak Jacome MD [address] [place] [id number] Scheduled Orders Name Type Priority Associated Diagnoses Orde r Schedule MYCODE SUBSEQUENT ADULT Lab Routine MyCode Research Other*[id number] Every 6 Months for 2 Occurrences starting 10/27/2023 until 11/15/2024 Health Maintenance Due Date Last Done Comments Hepatitis B (1 of 3 - 19+ 3-dose series) 1999 Depression Screening 12/14/2020 12/15/2019 DTaP,Tdap,and Td Vaccines (2 - Td or Tdap) 12/16/2021 12/17/2011 COVID-19 Vaccine ( - season) 2023 Influenza Vaccine (FLU shot) (Season Ended) 2024 Diabetes Screening 10/19/2026 10/20/2023, 0 10/20/2023, 10/22/2021, Additional history exists Lipid Panel 10/19/2028 10/20/2023, 10/04, 12/16/2019, Additional history exists GARDASIL-HPV IMMUNIZATION SERIES Aged Out No longer eligible based on patient's age to complete this topic MENINGOCOCCAL (MENACTRA/MENVEO) Aged Out No longer eligible based on patient's age to complete this topic Pneumococcal Vaccine: Pediatrics (0 to 5 Years) and At-Risk Patients (6 to 64 Years) Aged Out No longer eligible based on patient's age to complete this topic documented as of this encounter Medical Devices Not on filedocumented as of this encounter Visit Diagnoses Diagnosis MyCode Research Other*[id number] documented in this encounter Care Teams Card Feeder Relationship Specialty Start Date End Date Janak Jacome MD [address] [place] [address] PCP - General Family Medicine 10/20/23 documented as of this encounter
--- OUTSIDE RECORDS SUMMARY | 2024-01-05 11:16 | External Medical Summary | Summary of Care ---
Author Name Unknown Organization [facility] Address [address] [place] [address] Phone [phone] Care Team Providers Care Pie Dough Roller Name Role Phone Janak Jacome MD Primary Care Provider [phone] Reason for Visit * Reason Comments Physical-Exam Encounter Details Date Type Department Care Team (Late st Contact Info) Description 10/20/2023 10:00 AM EDT Office Visit [facility] [address] [place] [address] Janak Jacome MD [address] [place] [address] Routine general medical examination at a health care facility*; Overweight (BMI 25.0-29.9); Lipid screening; Screening for diabetes mellitus Allergies No known active allergiesdocumented as of this encounter (statuses as of 10/20/2023) Medications Medication Sig Dispensed Refills Start Date End Date Status Acetaminophen 500 MG Capsule Take 500 mg by mouth every 4 hours as needed. 0 10/20/2023 Discontinued documented as of this encounter (statuses as of 10/20/2023) Active Problems Problem Noted Date Diagnosed Date Overweight (BMI 25.0-29.9) 10/20/2023 documented as of this encounter (statuses as of 10/20/2023) Resolved Problems Problem Noted Date Diagnosed Date Resolved Date Hematospermia 09/19/2014 11/16/2015 Nasal congestion 12/17/2011 11/16/2015 Screening for cardiovascular condition 11/21/2011 10/20/2023 General medical exam 11/21/2011 024 Pain, neck 11/21/2011 11/16/2015 Painful knee 11/21/2011 11/16/2015 documented as of this encounter (statuses as of 10/20/2023) Immunizations Name Administration Dates Next Due TDAP [...] on file documented as of this encounter Last Filed Vital Signs Vital Sign Reading Time Taken Comments Blood Pressure 110/78 10/20/2023 10:02 AM EDT Pulse 80 10/20/2023 10:02 AM EDT Temperature 36.5 C (97.7 F) 10/20/2023 10:02 AM E DT Respiratory Rate 18 10/20/2023 10:02 AM EDT Oxygen Saturation 95% 10/20/2023 10:02 AM EDT Inhaled Oxygen Concentration - - Weight 103 kg (227 lb) 10/20/2023 10:02 AM EDT Height 185.4 cm (6' 1") 10/20/2023 10:02 AM EDT Body Mass Index 29.95 10/20/2023 10:02 AM EDT documented in this encounter Progress Notes * Janak Jacome MD - 10/20/2023 11:02 AM EDT SUBJECTIVE: Stalin Robbins is a 43 year old male. Chief Complaint Patient presents with Physical-Exam HPI: Routine visit. 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 He is generally healthy and has no acute medical concerns. We reviewed his health history today as he is establishing care with me as well. Patient Active Problem List Diagnosis Code Overweight (BMI 25.0-29.9) E66.3 No current outpatient medications on file. No current facility-administered medications for this visit. Allergy: Review of patient's allergies indicates: No Known Allergies OBJECTIVE: BP 110/78 | Pulse 80 | Temp 36.5 C (97.7 F) (Tympanic) | Resp 18 | Ht 1.854 m (6' 1") | Wt 103 kg (227 lb) | SpO2 95% | BMI 29.95 kg/m | BSA 2.3 m General: alert, healthy, and no distress Head: Normocephalic, No masses, lesions, tenderness or abnormalities Neck: supple, no adenopathy, no bruits, thyroid normal size, non-tender, without nodularity Lungs: chest symmetric with normal AP diameter, no chest deformities noted, no chest wall tenderness, lungs clear to auscultation Heart: regular rate & rhythm, no murmur, and no gallops Extremities: less than 2 second capillary refill, no joint deformities, effusion, or inflammation Neuro Exam: alert & oriented x 3 with fluent speech, no focal motor/sensory deficits, gait normal, reflexes normal and symmetric Skin: skin color, texture, turgor are normal, no rashes or significant lesions ASSESSMENT AND PLAN: (Z00.00) Routine general medical examination at a health care facility (primary encounter diagnosis) Plan: age appropriate anticipatory guidance given (E66.3) Overweight (BMI 25.0-29.9) Plan: diet/exercise (Z13.220) Lipid screening Plan: LIPID PANEL WITH DIRECT LDL IF TG IS HIGH (Z13.1) Screening for diabetes mellitus Plan: HEMOGLOBIN A1C, COMPREHENSIVE METABOLIC PANEL Follow up as needed. No other complaints were offered at this time. Janak Jacome MD documented in this encounter Nursing Notes * Ebony Felix LPN - 10/20/2023 10:02 AM EDT The patient has been properly identified by confirmation of name and date of . Chief Complaint Patient presents with Physical-Exam documented in this encounter Plan of Treatment Upcoming Encounters Date Type Department Care Team (Late st Contact Info) Description 10/20/2023 11:50 AM EDT Laboratory Laboratory, [facility] [address] [place] [phone] [facility] [address] [place] [address] [employer] Other*[id number]; Lipid screening; Screening for diabetes mellitus 10/21/2024 8:40 AM EDT Office Visit Family Practice [facility] [address] [place] [address] Janak Jacome MD [address] [place] [address] Pending Results Name Type Priority Associated Diagnoses Date /Time LIPID PANEL WITH DIRECT LDL IF TG IS HIGH Lab Routine Lipid screening 10/20/2023 10:48 AM EDT HEMOGLOBIN A1C Lab Routine Screening for diabetes mellitus 10/20/2023 10:48 AM EDT COMPREHENSIVE METABOLIC PANEL Lab Routine Screening for diabetes mellitus 10/20/2023 10:48 AM EDT Scheduled Orders Name Type Priority Associated Diagnoses Orde r Schedule LIPID PANEL WITH DIRECT LDL IF TG IS HIGH Lab Routine Lipid screening Expected: 10/20/2023, Expires: 10/19/2024 HEMOGLOBIN A1C Lab Routine Screening for diabetes mellitus Expected: 10/20/2023 (Approximate), Expires: 10/19/2024 COMPREHENSIVE METABOLIC PANEL Lab Routine Screening for diabetes mellitus Expected: 10/20/2023 (Approximate), Expires: 10/19/2024 Health Maintenance Due Date Last Done Comments Hepatitis B (1 of 3 - 19+ 3-dose series) 1999 Depression Screening 12/14/2020 12/15/2019 DTaP,Tdap,and Td Vaccines (2 - Td or Tdap) 12/16/2021 12/17/2011 COVID-19 Vaccine (1 - 2022- season) 2023 Influenza Vaccine (FLU shot) (Season Ended) 2024 Diabetes Screening 10/22/2024 10/22/2021, 0 12/16/2019, 12/17/2016 Lipid Panel 10/22/2026 10/22/2021, 12/04, 12/17/2016, Additional history exists GARDASIL-HPV IMMUNIZATION SERIES Aged [...] as of this encounter Visit Diagnoses Diagnosis Routine general medical examination at a health care facility- Primary Overweight (BMI 25.0-29.9) Overweight Lipid screening Screening for lipoid disorders Screening for diabetes mellitus [employer] Other*[id number] Lipid screening Screening for lipoid disorders Screening for diabetes mellitus documented in this encounter Care Teams Pie Dough Roller Relationship Specialty Start Date End Date Janak Jacome MD [address] [place] [address] PCP - General Family Medicine 10/20/23 documented as of this encounter
--- OUTSIDE RECORDS SUMMARY | 2024-01-05 11:16 | External Medical Summary | Summary of Care ---
Author Name Unknown Organization [facility] Address [address] [place] [address] Phone [phone] Care Team Providers Care Precast Molder Name Role Phone Janak Jacome MD Primary Care Provider [phone] Reason for Visit * Reason Comments Outpatient Testing Encounter Details Date Type Department Care Team (Late st Contact Info) Description 10/20/2023 11:50 AM EDT Laboratory Laboratory, [facility] [address] [facility] [place] [phone] [facility] [address] [facility] [place] [id number] [employer] Other*[id number]; Lipid screening; Screening for diabetes mellitus Allergies No known active allergiesdocumented as of this encounter (statuses as of 10/20/2023) Medications No known medicationsdocumented as of this [...] Description 10/21/2024 8:40 AM EDT Office Visit Family [facility] [address] [place] [address] Janak Jacome MD [address] [place] [address] Pending Results Name Type Priority Associated Diagnoses Date /Time MYCODE INITIAL ADULT Lab Routine [employer] Other*[id number] 10/20/2023 10:48 AM EDT LIPID PANEL WITH DIRECT LDL IF TG IS HIGH Lab Routine Lipid screening 10/20/2023 10:48 AM EDT HEMOGLOBIN A1C Lab Routine Screening for diabetes mellitus 10/20/2023 10:48 AM EDT COMPREHENSIVE METABOLIC PANEL Lab Routine Screening for diabetes mellitus 10/20/2023 10:48 AM EDT MYCODE INITIAL ADULT-PINK Lab Routine [employer] Other*[id number] 10/20/2023 10:48 AM EDT MYCODE SST1 Lab Routine [employer] Other*[id number] 10/20/2023 10:48 AM EDT MYCODE SST2 Lab Routine [employer] Other*[id number] 10/20/2023 10:48 AM EDT Health Maintenance Due Date Last Done Comments Hepatitis B (1 of 3 - 19+ 3-dose series) 1999 Depression Screening 12/14/2020 12/15/2019 DTaP,Tdap,and Td Vaccines (2 - Td or Tdap) 12/16/2021 12/17/2011 COVID-19 Vaccine (1 - 3-24 season) 2023 Influenza Vaccine (FLU shot) (Season [...] this encounter Visit Diagnoses Diagnosis [employer] Other*[id number] Lipid screening Screening for lipoid disorders Screening for diabetes mellitus documented in this encounter Care Teams Precast Molder Relationship Specialty Start Date End Date Janak Jacome MD [address] [place] [address] PCP - General Family Medicine 10/20/23 documented as of this encounter
--- OUTSIDE RECORDS SUMMARY | 2024-01-05 11:16 | External Medical Summary ---
Author Name Unknown Address Unknown Organization [id number]:LABORATORY [facility] - [address] [place] [facility] [place] [address] Laboratory Report Ordering Provider Test Date Status RG ARCOS 10/20/2023 10:48:43 Final Observation Date Value Abnormality Reference (Units ) Status Triglyceride 10/20/2023 10:48:43 84 <=174 ( mg/dL) Final Triglyceride Reference Range s (mg/dL):
<150 Acceptable
150-174 Borderline high
175-499 High
>=500 Very high Cholesterol 10/20/2023 10:48:43 227 Above high normal <200 (mg/dL) Final Total Cholesterol Reference Ranges (mg/dL):
<200 Desirable
200-239 Borderline high
>=240 High HDL 10/20/2023 10:48:43 57 >39 (mg/dL ) Final HDL Cholesterol Reference Ra nges (mg/dL):
>=60 High (Desirable)
<50 Low (Undesirable) For Females
<40 Low (Undesirable) For Males NON-HDL CHOLESTEROL 10/20/2023 10:48:43 170 Above high normal <=159 (mg/dL) Final Non-HDL Cholesterol Referenc e Range (mg/dL):
<100 Target level for high risk ASCVD patient
<130 Optimal for general population
130-159 Near optimal for general population
160-189 Borderline High
190-219 High
>=220 Very High LDL, (calculated) 10/20/2023 10:48:43 153 Above high n ormal <=129 (mg/dL) Final LDL Cholesterol Reference Ra nges (mg/dL):
<70 Target level for high risk ASCVD patient
<100 Optimal for general population
100-129 Near optimal for general population
130-159 Borderline high
160-189 High
>=190 Very high Performing Location LABORATORY [facility] - [address] [facility] [address]
--- OUTSIDE RECORDS SUMMARY | 2024-01-05 11:16 | External Medical Summary ---
Author Name Unknown Address Unknown Organization [id number]:LABORATORY [facility] - [address] [place] [address] Laboratory Report Ordering Provider Test Date Status RG ARCOS 10/20/2023 10:48:43 Final Observation Date Value Abnormality Reference (Units ) Status BUN 10/20/2023 10:48:43 10 6-20 (mg/dL) Final Creatinine 10/20/2023 10:48:43 1.1 0.6-1.2 (mg/dL) Final Glomerular filtration rate/1.73 sq M.predicted [Volume Rate/Area] in Serum, Plasma or Blood by Creatinine-based formula (CKD-EPI) 10/20/2023 10:48:43 83 >=60 (mL/min) Final eGFR is calculated based on the CKD-EPI 2020 equation Sodium 10/20/2023 10:48:43 139 135-146 (m mol/L) Final Potassium 10/20/2023 10:48:43 4.7 3.5-5.1 (m mol/L) Final Cl 10/20/2023 10:48:43 102 98-107 (mm ol/L) Final CO2 10/20/2023 10:48:43 28 22-32 (mmo l/L) Final Anion gap 10/20/2023 10:48:43 9 7-15 (mmol /L) Final Glucose 10/20/2023 10:48:43 96 70-120 (mg /dL) Final Albumin 10/20/2023 10:48:43 4.6 3.8-5.0 (g /dL) Final AST (Aspartate aminotransferase) 10/20/2023 10:48:43 24 10-50 (U/L) Final Alk Phos 10/20/2023 10:48:43 70 35-130 (U/ L) Final Bilirubin, Total 10/20/2023 10:48:43 0.6 <=1 .2 (mg/dL) Final Calcium 10/20/2023 10:48:43 10.1 8.4-10.2 ( mg/dL) Final Protein 10/20/2023 10:48:43 7.0 6.0-8.3 (g /dL) Final ALT (Alanine aminotransferase) 10/20/2023 10:48:43 18 10-50 (U/L) Final [facility] [address] [place] [address]
--- OUTSIDE RECORDS SUMMARY | 2024-01-05 11:16 | External Medical Summary ---
Author Name Unknown Address Unknown Organization [id number]:LABORATORY [facility] [place] - [address] [place] [address] Laboratory Report Ordering Provider Test Date Status SHEREEN BOOTHE 10/20/2023 10:48:43 Final Observation Date Value Abnormality Reference (Units ) Status MYCODE SPECIMEN-SST 10/20/2023 10:48:43 Freezing of extracted DNA, whole blood and/or serum. Final Performing Location LABORATORY [facility] [place] - [address] [facility] [address]
--- OUTSIDE RECORDS SUMMARY | 2024-01-05 11:17 | External Medical Summary ---
Author Name Unknown Address Unknown Organization [id number]:LAB[facility]ATORY [facility] [place] - [address] [place] [address] Laboratory Report Ordering Provider Test Date Status SHEREEN BOOTHE 10/20/2023 10:48:43 Final Observation Date Value Abnormality Reference (Units ) Status OneAway[employer]DE SPECIMEN-LAV 10/20/2023 10:48:43 Freezing of extracted DNA, whole blood and/or serum. Final Performing Location LABORATORY C - [address] [facility] [address]
--- NOTE | 2024-01-05 12:39 | Communication Note ---
Date of Service: January 05, 2024 Neurology Service Plan of Care Note - Patient wasn't seen on camera due to technical difficulties, but the chart and all imaging were reviewed. Stalin Robbins is a 43M with no relevant PMH who presented to the ED with right hand numbness and weakness which lasted for about [address] head was unremarkable and CTA showed no stenosis or LVO. MRI shows a very small cortical infarct in the left MCA territory (hand knob) and Echo shows a large PFO. Given his age and lack of other risk factors the PFO on echo is the likely cause of his symptoms. -- continue ASA and statin -- interventional cardiology referral for PFO closure (can be done o/p) -- consider ziopatch at d/c -- I will get on camera once the technical issue is resolved
--- NOTE | 2024-01-05 14:04 | Pharmacy Report ---
- Date of Service January 05, 2024 - Pharmacy CVA/TIA Medication Review Medications to Prevent Stroke handout has been added to the patients discharge packet. Antiplatelet(s) * Aspirin 81 mg Cholesterol * High intensity statin: rosuvastatin 20 mg daily DVT Prophylaxis * SCD thigh Therapeutic Anticoagulation * No history of Afib/Aflutter noted; large PFO on echo f/u with intervention cardiology, neurology recommending considering ziopatch on discharge Type 2 Diabetes * Patient does not have T2DM
--- NOTE | 2024-01-05 14:18 | Hospitalist Progress Note ---
Date of Service January 05, 2024 Assessment & Plan (1) Stroke-like symptoms: Plan: 43-year-old male with no significant past medical history presents with strokelike symptoms. Patient was in a summer camp. There was dance alliance party but he was just sitting and watching. Around 9 PM he noticed numbness in his right hand. He could not uncork water bottle. At the time he also felt some slurred speech and slow speech. He went to [facility] and the blood pressure was checked and [id number]. Symptoms lasted 15 to 20 minutes. EMS was called and brought him here. Patient was a stroke alert. Initial workup unremarkable. Patient denies any headache. No dizziness. Says he was ambulating okay. No blurred vision . Has some congestion. And some sore throat. No cough. No fevers. No difficulty swallowing. No chest pain. No shortness of breath. No nausea. No sweating. No abdominal pain. Normal bowel and bladder movements. Currently resting comfortably and hemodynamically stable. He did some yard work recently but did not notice any tick bites. As per history father had NV in his 50s. As per patient his brother had SVTs in his 50s. Acute ischemic left MCA CVA --CT head:No acute intracranial finding. --Head CTA:No acute finding of the arteries of the head. --Neck CTA:No acute finding of the arteries of the neck. --Venous Doppler:No DVT within the right or left lower extremity. --MRI Brain:shows "a very small cortical infarct in the left MCA territory" as reviewed by neurologist --ECHO: Large interatrial shunt detected with injection of agitated saline contrast. Patent foramina ovale with significant [id number] shunt. Small ASD cannot be excluded. Left ventricle systolic function is normal. EF 60 to 65%. Right ventricle is normal in size. No significant valvular pathology. -- LDL 105, HbA1c 5.6 --Lyme serology negative --Continue aspirin 81 mg, rosuvastatin --Appreciate neurology input --Evaluated by PT OT, speech therapy --Consulted cardiology for EMILY --Needs follow-up with CT surgery as outpatient for PFO closure --Will need ZIO monitor as outpatient Hepatic cyst Incidental finding on echo. Will obtain liver ultrasound Needs follow-up as outpatient for further evaluation Hypertension Likely situational Allow permissive hypertension in setting of acute CVA Monitor BP DVT Px: SCDs for now CODE STATUS Full code Admission and Anticipated Discharge Date Admission Date: January 05, 2024 Subjective Patient is seen and examined at bedside States feeling well today Right upper extremity numbness, slurred speech resolved No new complaints today Denies any chest pain, dyspnea, nausea, vomiting, abdominal pain, focal weakness, change in vision, dysphagia Discussed with neurologist on-call Also discussed with patient's family at bedside Review of Systems Review of Systems: All systems reviewed & are unremarkable except as noted in Subjective Physical Exam Physical Exam: Physical Exam: Vitals signs as noted above General Appearance:Moderately built and nourished, no apparent distress Head: normocephalic, Atraumatic Eyes: normal inspection, EOMI Neck: supple, Trachea midline Respiratory/Chest: Normal breath sounds, CTA, No accessory muscle use Cardiovascular: S1, S2, No murmur Abdomen/GI:Soft, Non tender, Bowel sounds present Extremities/Musculoskeletal:normal inspection, no edema Neurologic/Psych:AAOX3, grossly no focal neurological deficits Skin: normal color, warm Results & Data Results & Data Vital Signs (Past 12 Hours) Vital Signs Temp Pulse Pulse Resp BP BP Pulse Ox 01/05/24 12:00 36.9 C 78 18 125/84 98 01/05/24 09:51 67 18 130/91 97 01/05/24 07:06 36.6 C 83 20 139/87 98 01/05/24 06:00 65 01/05/24 05:23 36.5 C 58 L 18 128/90 98 01/05/24 04:15 71 01/05/24 02:47 62 01/05/24 02:18 59 L 20 126/86 97 O2 Del Method 01/05/24 12:00 Room Air 01/05/24 09:51 Room Air 01/05/24 07:06 Room Air 01/05/24 06:00 01/05/24 05:23 Room Air 01/05/24 04:15 01/05/24 02:47 01/05/24 02:18 Laboratory Results Short CBC 01/04/24 01/05/24 Range/Units 22:38 05:22 WBC 6.02 5.55 (4.8-10.8) K/ul Hgb 14.2 13.7 L (14.0-18.0) g/dl Hct 41.8 L 39.8 L (42.0-52.0) % Plt Count 185 178 (130-400) K/uL BMP 01/04/24 01/05/24 22:38 05:22 Sodium 134 L 139 Potassium 3.7 3.6 Chloride 100 105 Carbon Dioxide 29 30 BUN 13 10 Creatinine 0.98 0.95 Glucose 99 113 H Calcium 9.0 8.7 Liver Function 01/04/24 Range/Units 22:38 Total Bilirubin 0.7 (0.2-1.0) mg/dl AST 22 (13-39) U/L ALT 15 (7-52) U/L Alkaline Phosphatase 56 (34-104) U/L Albumin 4.3 (3.4-5.0) gm/dl Urine 01/04/24 Range/Units 22:42 Urine Color Yellow Urine Appearance Clear (Clear) Urine pH 7.0 (4.5-7.5) Ur Specific [place] 1.011 (1.000-1.030) Urine Protein Negative (Negative) Urine Glucose (UA) Negative (Negative)
--- NOTE | 2024-01-05 14:19 | Neurology Consultation ---
Date of Consultation January 05, 2024 Assessment & Plan (1) Acute ischemic left MCA stroke: Stalin Robbins is a 43M with no relevant PMH who presented to the ED with right hand numbness and weakness which lasted for about [address] head was unremarkable and CTA showed no stenosis or LVO. MRI shows a very small cortical infarct in the left MCA territory (hand knob) and Echo shows a large PFO. Given his age and lack of other risk factors the PFO on echo is the likely cause of his symptoms. ROPE score of 8 Plan -- continue ASA and statin -- interventional cardiology referral for PFO closure (can be done o/p) -- consider marleytch at d/c Telehealth Consultation Telehealth Information Telehealth Information: I performed this visit using a real-time telehealth connection between my location and the patients location ([facility]). After connecting through interactive tele-video, patient was identified by name and date of and/or wristband check.Patient (or authorized healthcare in store marketing representative) was informed that this was a telemedicine visit and it was being conducted confidentially over secure lines. My office door was closed and no one else was present in the room with me.Patient (or authorized healthcare in store marketing representative) provided consent to proceed with the visit, expressed an understanding of privacy and security of the telemedicine visit, and gave permission to have a hospital in store marketing representative in the room in order to assist with the visit and to conduct portions of the visit, as needed. I informed the patient (or authorized healthcare in store marketing representative) that I reviewed their record and presented the opportunity for them to ask any questions regarding the visit today. The patient agreed to participate. History of Present Illness Reason for Consultation: stroke symptoms Attending Physician: Kris Vega MD History of Present Illness Stalin Robbins is a 43M with no relevant PMH who presented to the ED with transient right hand weakness. 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 He also noted some mild slurred speech and confusion. Symptoms resolved by the time he arrived to the ED. He has never had symptoms like this before and denies any history of stroke. His 2 older brother have had SVT. He denies headache, fevers, chills, chest pain, SOB and palpitation. Allergies Allergy/AdvReac Type Severity Reaction Status Date / Time No Known Allergies Allergy Verified 01/04/24 23:16 Home Medications Medication Instructions Recorded Confirmed Type No Known Home Medications 01/04/24 01/04/24 History Patient History Social History Smoking Status: Never smoker Do You Dip or Chew Tobacco: No; Hx Alcohol Use: Yes Alcohol type: beer Hx Substance Use: No Preferred Language: Bulgarian Communication Ability: Effective Bumper And Painter Required: No Beliefs That Will Affect Care: None Current Living Situation: Spouse Other Information That Helps Us Care for You: No Feels Safe at Home: Yes Safety Concerns: Feels Safe At This Time Assistive Devices: None Physical Exam Mental Status:alert, oriented to time, place, person, normal recent memory, normal remote memory, normal attention span, normal concentration, normal language, and normal fund of knowledge Cranial Nerves: CN 2 - no visual defect on confrontation and pupils round, equal, reactive to light CN 3, 4, 6 - extra-ocular movements intact and no nystagmus CN 5 - facial sensation intact CN 7 - no facial asymmetry CN 8 - intact hearing CN 9, 10 - palate symmetric, normal gag CN 11 - good shoulder shrug CN 12 - tongue midline MOTOR: Strength was at least antigravity throughout, Pronator drift was absent, and There were no abnormal movements SENSATION: intact and symmetric GAIT: stable, no ataxia, and can perform tandem walking COORDINATION: no ataxia with finger to nose testing and heel to philippe testing REFLEXES: cannot assess over telemedicine Results & Data Vital Signs (Past 12 Hours) Vital Signs Temp Pulse Pulse Resp BP BP Pulse Ox 01/05/24 12:00 36.9 C 78 18 125/84 98 01/05/24 09:51 67 18 130/91 97 01/05/24 07:06 36.6 C 83 20 139/87 98 01/05/24 06:00 65 01/05/24 05:23 36.5 C 58 L 18 128/90 98 01/05/24 04:15 71 01/05/24 02:47 62 01/05/24 02:18 59 L 20 126/86 97 O2 Del Method 01/05/24 12:00 Room Air 01/05/24 09:51 Room Air 01/05/24 07:06 Room Air 01/05/24 06:00 01/05/24 05:23 Room Air 01/05/24 04:15 01/05/24 02:47 01/05/24 02:18 Laboratory Results Abnormal Lab Results 01/04/24 01/04/24 01/04/24 22:37 22:38 22:40 WBC 6.02 RBC 4.86 Hgb 14.2 POC Hgb Hct 41.8 L POC Hct MCV 86.0 MCH 29.2 MCHC 34.0 RDW Std Deviation 37.0 RDW Coeff of Josué 11.9 Plt Count 185 MPV 9.3 L Immature Gran % (Auto) 0.3 Neut % (Auto) 61.8 Lymph % (Auto) 24.4 [place] % (Auto) 10.8 Eos % (Auto) 2.0 Baso % (Auto) 0.7 Neut # (Auto) 3.72 Lymph # (Auto) 1.47 [place] # (Auto) 0.65 H Eos # (Auto) 0.12 Baso # (Auto) 0.04 Immature Gran # (Auto) 0.02 PT Cancelled INR Cancelled APTT Cancelled PTT Ratio Cancelled POC Sodium Sodium 134 L POC Potassium Potassium 3.7 POC Chloride Chloride 100 Carbon Dioxide 29 POC Total CO2 Anion Gap 5 POC Anion Gap POC BUN BUN 13 Creatinine 0.98 POC Creatinine Est Cr Clr Drug Dosing 125.2 Est GFR ( Amer) 109.0 Est GFR (Non-Af Amer) 94.1 BUN/Creatinine Ratio 13.3 Glucose 99 POC Glucose 99 POC Glucose (other) Estimat Average Glucose Hemoglobin A1c Calcium 9.0 POC Ioniz Calcium Guero Magnesium 1.9 Total Bilirubin 0.7 AST 22 ALT 15 Alkaline Phosphatase 56 Troponin I High Sens 4.4 Total Protein 6.4 Albumin 4.3 Globulin 2.1 L Albumin/Globulin Ratio 2.0 Triglycerides Cholesterol LDL Cholesterol, Calc VLDL Cholesterol, Calc HDL Cholesterol Cholesterol/HDL Ratio Urine Color Urine Appearance Urine pH Ur Specific [place] Urine Protein Urine Glucose (UA) Urine Ketones Urine Blood Urine Nitrite Urine Bilirubin Urine Urobilinogen Ur Leukocyte Esterase Anaplasma Smear See Comment Babesia Smear See Comment Lyme Disease Screen Negative Blood Type B Negative Antibody Screen NEGATIVE 01/04/24 01/04/24 01/04/24 22:41 22:42 23:15 WBC RBC Hgb POC Hgb 13.6 L Hct POC Hct 40 L MCV MCH MCHC RDW Std Deviation RDW Coeff of Josué Plt Count MPV Immature Gran % (Auto) Neut % (Auto) Lymph % (Auto) [place] % (Auto) Eos % (Auto) Baso % (Auto) Neut # (Auto) Lymph # (Auto) [place] # (Auto) Eos # (Auto) Baso # (Auto) Immature Gran # (Auto) PT 11.4 INR 1.1 APTT 25 PTT Ratio 0.9 POC Sodium 136 Sodium POC Potassium 3.8 Potassium POC Chloride 97 L Chloride Carbon Dioxide POC Total CO2 27 Anion Gap POC Anion Gap 17.0 POC BUN 12 BUN Creatinine POC Creatinine 1.1 Est Cr Clr Drug Dosing Est GFR ( Amer) Est GFR (Non-Af Amer) BUN/Creatinine Ratio Glucose POC Glucose POC Glucose (other) 102 H Estimat Average Glucose Hemoglobin A1c Calcium POC Ioniz Calcium Guero 1.16 Magnesium Total Bilirubin AST ALT Alkaline Phosphatase Troponin I High Sens Total Protein Albumin Globulin Albumin/Globulin Ratio Triglycerides Cholesterol LDL Cholesterol, Calc VLDL Cholesterol, Calc HDL Cholesterol Cholesterol/HDL Ratio Urine Color Yellow Urine Appearance Clear Urine pH 7.0 Ur Specific [place] 1.011 Urine Protein Negative Urine Glucose (UA) Negative Urine Ketones Negative Urine Blood Negative Urine Nitrite Negative Urine Bilirubin Negative Urine Urobilinogen Negative Ur Leukocyte Esterase Negative Anaplasma Smear Babesia Smear Lyme Disease Screen Blood Type Antibody Screen 01/05/24 05:22 WBC 5.55 RBC 4.62 L Hgb 13.7 L POC Hgb Hct 39.8 L POC Hct MCV 86.1 MCH 29.7 MCHC 34.4 RDW Std Deviation 37.2 RDW Coeff of Josué 11.9 Plt Count 178 MPV 9.7 Immature Gran % (Auto) 0.2 Neut % (Auto) 63.4 Lymph % (Auto) 24.3 [place] % (Auto) 10.1 Eos % (Auto) 1.3 Baso % (Auto) 0.7 Neut # (Auto) 3.52 Lymph # (Auto) 1.35 [place] # (Auto) 0.56 Eos # (Auto) 0.07 Baso # (Auto) 0.04 Immature Gran # (Auto) 0.01 PT INR APTT PTT Ratio POC Sodium Sodium 139 POC Potassium Potassium 3.6 POC Chloride Chloride 105 Carbon Dioxide 30 POC Total CO2 Anion Gap 4 POC Anion Gap POC BUN BUN 10 Creatinine 0.95 POC Creatinine Est Cr Clr Drug Dosing 124.6 Est GFR ( Amer) 113.2 Est GFR (Non-Af Amer) 97.6 BUN/Creatinine Ratio 10.5 Glucose 113 H POC Glucose POC Glucose (other) Estimat Average Glucose 114 Hemoglobin A1c 5.6 Calcium 8.7 POC Ioniz Calcium Guero Magnesium Total Bilirubin AST ALT Alkaline Phosphatase Troponin I High Sens Total Protein Albumin Globulin Albumin/Globulin Ratio Triglycerides 45 Cholesterol 168 LDL Cholesterol, Calc 105 VLDL Cholesterol, Calc 9 HDL Cholesterol 54 Cholesterol/HDL Ratio 3.1 Urine Color Urine Appearance Urine pH Ur Specific [place] Urine Protein Urine Glucose (UA) Urine Ketones Urine Blood Urine Nitrite Urine Bilirubin Urine Urobilinogen Ur Leukocyte Esterase Anaplasma Smear Babesia Smear Lyme Disease Screen Blood Type Antibody Screen Diagnostic Findings Head CT 01/04/24 22:19 CR Exam(s): CT HEAD Without Contrast EXAM: CT Head Without Intravenous Contrast CLINICAL HISTORY: Neuro deficit, acute stroke suspected. TECHNIQUE: Axial computed tomography images of the head/brain without intravenous contrast. CTDI is 47.66 mGy and DLP is 1287.52 mGy-cm. Automated exposure control was utilized for the study. A dose lowering technique was utilized adhering to the principles of ALARA. COMPARISON: No relevant prior studies available. FINDINGS: Brain: Unremarkable. No significant white matter disease. No intracranial hemorrhage, mass-effect or midline shift. No abnormal extra axial fluid. No evidence of acute infarct. Ventricles: Unremarkable. No ventriculomegaly. Bones/joints: Unremarkable. No acute fracture. Soft tissues: Unremarkable. Sinuses: Unremarkable as visualized. No acute sinusitis. Mastoid air cells: Unremarkable as visualized. No mastoid effusion. IMPRESSION: No acute intracranial finding. Communications: Call Doctor Stroke Electronically signed by: Laurence Cartagena MD 01/04/24 22:45 PM Head CTA 01/04/24 22:19 CR Exam(s): CTA HEAD With Contrast IV Amt: 118 cc opti 320 EXAM: CT Angiography Head With Intravenous Contrast CLINICAL HISTORY: neuro deficit, acute stroke suspected. TECHNIQUE: Axial computed tomographic angiography images of the head with intravenous contrast. 3D and MIPS images were created and reviewed. CTDI is 47.66 mGy and DLP is 1287.52 mGy-cm. Automated exposure control was utilized for the study. A dose lowering technique was utilized adhering to the principles of ALARA. MIP reconstructed images were created and reviewed. CONTRAST: Patient received 118 cc opti 320 of IV contrast COMPARISON: No relevant prior studies available. FINDINGS: Right internal carotid artery: No acute findings. Intracranial segment is patent with no significant stenosis. No aneurysm. Right anterior cerebral artery: Unremarkable. No occlusion or significant stenosis. No aneurysm. Right middle cerebral artery: Unremarkable. No occlusion or significant stenosis. No aneurysm. Right posterior cerebral artery: Unremarkable. No occlusion or significant stenosis. No aneurysm. Right vertebral artery: Unremarkable as visualized. Left internal carotid artery: No acute findings. Intracranial segment is patent with no significant stenosis. No aneurysm. Left anterior cerebral artery: Unremarkable. No occlusion or significant stenosis. No aneurysm. Left middle cerebral artery: Unremarkable. No occlusion or significant stenosis. No aneurysm. Left posterior cerebral artery: Unremarkable. No occlusion or significant stenosis. No aneurysm. Left vertebral artery: Unremarkable as visualized. Basilar artery: Unremarkable. No occlusion or significant stenosis. No aneurysm. IMPRESSION: No acute finding of the arteries of the head. Communications: Call Doctor Stroke Electronically signed by: Laurence Cartagena MD 01/04/24 22:59 PM Neck CTA 01/04/24 22:19 CR Exam(s): CTA NECK With Contrast IV Amt: 118 cc opti 320 EXAM: CT Angiography Neck With Intravenous Contrast CLINICAL HISTORY: Neuro deficit, acute stroke suspected. TECHNIQUE: Routine carotid CT angiography protocol was performed with intravenous contrast. NASCET criteria using the distal ICAs for comparison were used for evaluation of stenoses. MIPS images were created and reviewed. CTDI is 47.66 mGy and DLP is 1287.52 mGy-cm. Automated exposure control was utilized for the study. A dose lowering technique was utilized adhering to the principles of ALARA. MIP reconstructed images were created and reviewed. CONTRAST: Patient received 118 cc opti 320 of IV contrast COMPARISON: None. FINDINGS: VASCULATURE: Right common carotid artery: Unremarkable. No occlusion or significant stenosis. No dissection. Right internal carotid artery: Unremarkable. Extracranial segment is patent with no occlusion or significant stenosis. No dissection. Right external carotid artery: Unremarkable. No occlusion. Right vertebral artery: Unremarkable. No occlusion or significant stenosis. No dissection. Left common carotid artery: Unremarkable. No occlusion or significant stenosis. No dissection. Left internal carotid artery: Unremarkable. Extracranial segment is patent with no occlusion or significant stenosis. No dissection. Left external carotid artery: Unremarkable. No occlusion. Left vertebral artery: Unremarkable. No occlusion or significant stenosis. No dissection. NECK: Bones/joints: Unremarkable. No acute fracture. Soft tissues: Unremarkable. Lung apices: Clear. CAROTID STENOSIS REFERENCE USING NASCET CRITERIA: % ICA stenosis = (1 - narrowest ICA diameter/diameter of distal cervical ICA) x 100. Mild - <50% stenosis. Moderate - 50-69% stenosis. Severe - 70-94% stenosis. Near occlusion - 95-99% stenosis. Occluded - 100% stenosis. IMPRESSION: No acute finding of the arteries of the neck. Communications: Call Doctor Stroke Electronically signed by: Laurence Cartagena MD 01/04/24 23:03 PM Brain MRI 01/05/24 04:22 MR brain wo/w con CLINICAL HISTORY: stroke like symptoms TECHNIQUE: Multiplanar and multisequence MR images of the brain were obtained prior to and following administration of gadolinium contrast. Comparison: None available at the time of this dictation. FINDINGS: No abnormal restricted diffusion is identified. The white matter is unremar kable. The ventricular system is normal in appearance. No mass or abnormal enhancement is seen. There is no mass effect or midline shift. There is no evidence of acute intraparenchymal hemorrhage. No extra axial fluid collections are seen. The corpus callosum, pituitary gland, and cerebellar tonsils appear grossly unremarkable. Flow voids of the major intracranial arterial vessels are identified. The imaged portions of the paranasal sinuses, mastoid air cells, and orbits are unremarkable. IMPRESSION: No acute abnormalities. ACT 112: Negative or not required by law. Electronically signed by: Phong Arnold M.D. 01/05/2024 9:52 AM
--- NOTE | 2024-01-05 14:25 | Ultrasound Report ---
BILATERAL LOWER EXTREMITY VENOUS DOPPLER HISTORY: CVA, R/O DVT COMPARISON STUDY: None. FINDINGS: There is normal compressibility, flow, and augmentation within the bilateral lower extremit y deep venous systems. IMPRESSION: No DVT within the right or left lower extremity. ACT 112: Negative or not required by law. Electronically signed by: Ceasar Pisano M.D. 01/05/2024 2:24 PM
--- NOTE | 2024-01-05 14:55 | Ultrasound Report ---
US liver CLINICAL HISTORY: Hepatic cyst. COMPARISON STUDY: No previous studies for comparison. FINDINGS: Liver morphology is normal. A 7 mm left hepatic lobe lesion represents a cyst. There are no solid hepatic lesions. No biliary ductal dilatation is present. The gallbladder is normal. There are no gallstones. Pancreas is unremarkable by sonography although the head and tail are slightly obscur ed. There is no right hydronephrosis. IMPRESSION: 1. No gallstones or biliary ductal dilatation. 2. 7 mm left hepatic lobe cyst. ACT 112: Negative or not required by law. Electronically signed by: Earnest Jean M.D. 01/05/2024 2:54 PM
--- NOTE | 2024-01-05 16:12 | Cardiology Consultation ---
Date of Consultation January 05, 2024 Assessment & Plan (1) PFO (patent foramen ovale): (2) Acute ischemic left MCA stroke: Plan 43-year-old male presents with strokelike symptoms and MRI evidence of left MCA CVA. 2D transthoracic echocardiogram with large right to left intracardiac shunt suggesting patent foramen ovale. ROPE score = 8 indicating high likelihood of PFO as cause of patient's symptoms/CVA. Recommend transesophageal echocardiogram for further evaluation. Risk, benefits, alternatives to procedure reviewed at length. Patient agreeable. N.p.o. after midnight. Pending review of EMILY, will refer to interventional cardiology as outpatient to consider percutaneous closure device implantation. Continue antiplatelet and statin therapy. I spent a total of 60 minutes on the date of service in preparation, delivery, and documentation of the care provided to this patient, excluding any time spent in the performance of separately billed services. History of Present Illness Reason for Consultation: Patent foramen ovale, CVA Requesting Physician: Dr. Kris Vega Attending Physician: Kris Vega MD History of Present Illness 43-year-old male presented to the emergency department with right hand weakness, numbness, and slowed speech. Reports difficulty removing Of water bottle while attending a [employer] function. Symptoms lasted approximately 25 minutes. Denies any prior strokelike symptoms. Asymptomatic since admission. MRI demonstrating evidence of very small cortical infarct in the left MCA territory. Cardiology consultation requested due to echocardiographic evidence of PFO. Allergies Allergy/AdvReac Type Severity Reaction Status Date / Time No Known Allergies Allergy Verified 01/04/24 23:16 Home Medications Medication Instructions Recorded Confirmed Type No Known Home Medications 01/04/24 01/04/24 History Patient History Social History Smoking Status: Never smoker Do You Dip or Chew Tobacco: No; Hx Alcohol Use: Yes Alcohol type: beer Hx Substance Use: No Preferred Language: Uruguayan Communication Ability: Effective Manager Sign Required: No Beliefs That Will Affect Care: None Current Living Situation: Spouse Other Information That Helps Us Care for You: No Feels Safe at Home: Yes Safety Concerns: Feels Safe At This Time Assistive Devices: None Review of Systems Review of Systems: All systems reviewed & are unremarkable except as noted in Subjective Physical Exam Constitutional: well nourished; no acute distress and not ill appearing Respiratory: no respiratory distress, no labored breathing and no retractions Cardiovascular: Rate/Rhythm: regular rate and regular rhythm Heart Sounds: normal S1 and normal S2; no murmur Vessels: no JVD and no carotid bruit Extremities: no edema Gastrointestinal (Abdomen): Inspection/Auscultation: abdomen normal to inspection, + abdomen distended and normal bowel sounds Percussion/Palpation: abdomen soft; abdomen nontender, no guarding and abdomen not rigid Neurologic: CN's II-XI intact bilaterally and moves all extremities; no focal motor deficits Results & Data Vital Signs (Past 12 Hours) Vital Signs Temp Pulse Pulse Resp BP Pulse Ox O2 Del Method 01/05/24 15:14 36.8 C 69 18 146/88 H 95 Room Air 01/05/24 13:00 78 01/05/24 12:00 36.9 C 78 18 125/84 98 Room Air 01/05/24 09:51 67 18 130/91 97 Room Air 01/05/24 07:06 36.6 C 83 20 139/87 98 Room Air 01/05/24 06:00 65 01/05/24 05:23 36.5 C 58 L 18 128/90 98 Room Air 01/05/24 04:15 71 Laboratory Results Cardiac Enzymes 01/04/24 Range/Units 22:38 AST 22 (13-39) U/L Troponin I High Sens 4.4 (0-20) pg/ml Coagulation 01/04/24 01/04/24 Range/Units 22:38 23:15 PT Cancelled 11.4 APTT Cancelled 25 Lipids 01/05/24 Range/Units 05:22 Triglycerides 45 (0-150) mg/dl Cholesterol 168 (0-200) mg/dl HDL Cholesterol 54 mg/dl Cholesterol/HDL Ratio 3.1 (0-5) CBC 01/04/24 01/05/24 Range/Units 22:38 05:22 WBC 6.02 5.55 (4.8-10.8) K/ul RBC 4.86 4.62 L (4.70-6.10) M/uL Hgb 14.2 13.7 L (14.0-18.0) g/dl Hct 41.8 L 39.8 L (42.0-52.0) % Plt Count 185 178 (130-400) K/uL Neut # (Auto) 3.72 3.52 (1.40-6.50) K/uL Lymph # (Auto) 1.47 1.35 (1.20-3.40) K/uL [place] # (Auto) 0.65 H 0.56 (0.11-0.59) K/uL Eos # (Auto) 0.12 0.07 (0.00-0.50) K/uL Baso # (Auto) 0.04 0.04 (0.00-0.20) K/uL Comprehensive Metabolic Panel 01/04/24 01/05/24 Range/Units 22:38 05:22 Sodium 134 L 139 (136-145) mmol/L Potassium 3.7 3.6 (3.5-5.1) mmol/L Chloride 100 105 (98-107) mmol/L Carbon Dioxide 29 30 (21-32) mmol/L BUN 13 10 (6-23) mg/dl Creatinine 0.98 0.95 (0.6-1.4) mg/dl Glucose 99 113 H (70-99(Fasting)) mg/dl Calcium 9.0 8.7 (8.6-10.3) mg/dl AST 22 (13-39) U/L ALT 15 (7-52) U/L Alkaline Phosphatase 56 (34-104) U/L Total Protein 6.4 (6.0-8.3) gm/dl Albumin 4.3 (3.4-5.0) gm/dl Intake and Output 01/05/24 01/05/24 01/05/24 06:59 14:59 22:59 Intake Total 600 / 600 Balance 600 / 600 Intake: IV 500 / 500 Sodium Chloride 0.9% 500 ml @ 500 / 500 999 mls/hr IV .Q31M ONE Rx#: [id number] Oral 100 / 100 Other: Weight 99.79 kg Weight Measurement Method Built in [facility]
--- NOTE | 2024-01-06 06:32 | Electrocardiogram Report ---
Test Reason : Blood Pressure : / mmHG Vent. Rate : 076 BPM Atrial Rate : 076 BPM P-R Int : 172 ms QRS Dur : 096 ms QT Int : 378 ms P-R-T Axes : 053 068 031 degrees QTc Int : 425 ms Normal sinus rhythm Cannot rule out Anterior infarct , age undetermined Abnormal ECG No previous ECGs available Confirmed by Ted Sage ([id number]) on 01/06/2024 6:32:46 AM Referred By: REFERRED SELF Confirmed By:Ted Sage
[2024-01-06 06:39] LABS: Basophils # (auto) 0.05 K/uL (0.00-0.20); Basophils % (auto) 0.8 %; Eosinophils # (auto) 0.29 K/uL (0.00-0.50); Eosinophils % (auto) 4.7 %; Hematocrit (blood only) 45.3 % (42.0-52.0); Hemoglobin 15.8 g/dl (14.0-18.0); Immature Granulocytes # (auto) 0.01 K/uL (0.01-0.20); Immature Granulocytes % (auto) 0.2 %; Lymphocytes # (auto) 1.38 K/uL (1.20-3.40); Lymphocytes % (auto) 22.4 %; Mean Corpuscular Hemoglobin 29.9 pg (25.0-34.0); Mean Corpuscular Hgb Conc 34.9 g/dL (32.0-36.0); Mean Corpuscular Volume 85.6 fL (80.0-100.0); Mean Platelet Volume 9.2 fL (9.4-12.4); Monocytes # (auto) 0.63 K/uL (0.11-0.59); Monocytes % (auto) 10.2 %; Neutrophils % (auto) 61.7 %; Platelet Count 180 K/uL (130-400); RDW Coefficient of Variation 11.9 % (11.5-14.5); Red Blood Count 5.29 M/uL (4.70-6.10); White Blood Count 6.16 K/ul (4.8-10.8)
[2024-01-06 07:03] LABS: BUN Creatinine Ratio 10.3 (10-20); Calcium 8.9 mg/dl (8.6-10.3); Creatinine Clr Calc Pharmacy 110.1 ml/min; Est GFR (Non-African American) 84.6 ml/min; Magnesium 1.9 mg/dl (1.7-2.4); Potassium 4.3 mmol/L (3.5-5.1)
--- NOTE | 2024-01-06 10:20 | Discharge Summary ---
Discharge Summary Date of Service January 06, 2024 Principal Dx & Hospital Course #1 = Principal Diagnosis (1) Stroke-like symptoms: Mr. Robbins is a 43-year-old male with no significant past medical history presented with strokelike symptoms on 01/04 marked by right arm numbess and weakness as well a speech disturbance. Patient was stroke alert on admission and initial imaginge negative, however, MRI with small cortical left MCA infarct. ECHO revealed large PFO and with a calculate ROPE score of 8 both Cards and Neuro suspect this to be etiology of symptoms. Patient reported resolution of symptoms. There was plan for EMILY on 01/05 however, 2/2 congestion and URI symptoms patient declined EMILY. Patient started on statin, plavix, and asa. Arrangements made for zio upon d/c and follow up for OP EMILY. On day of discharge, patient reported some nasal congestion, but denies fevers, chills, nausea/vomtiing or other acute concerns. #Acute ischemic left MCA CVA --CT head:No acute intracranial finding. --Head CTA:No acute finding of the arteries of the head. --Neck CTA:No acute finding of the arteries of the neck. --Venous Doppler:No DVT within the right or left lower extremity. --MRI Brain:shows "a very small cortical infarct in the left MCA territory" as reviewed by neurologist --ECHO: Large interatrial shunt detected with injection of agitated saline contrast. Patent foramina ovale with significant [id number] shunt. Small ASD cannot be excluded. Left ventricle systolic function is normal. EF 60 to 65%. Right ventricle is normal in size. No significant valvular pathology. -Dopplers negative -- LDL 105, HbA1c 5.6 --Lyme serology negative --Continue aspirin 81 mg, rosuvastatin -Continue plavix for total 21 days --Appreciate neurology input -likely 2/2 PFO --Consulted cardiology for EMILY -declined this admission -Plan for OP EMILY in next 1-2 weeks -Zio monitor upon D/C Hypercoag work up ordered by Cards, pending #Hepatic cyst Incidental finding on echo. Liver US 7mm stable Needs follow-up as outpatient for further evaluation #Hypertension *improved Likely situational Allow permissive hypertension in setting of acute CVA Monitor BP Notes For Next Care Provider #Hepatic cyst-Incidental finding on echo. Liver US 7mm stable Needs follow-up as outpatient for further evaluation Medication Changes From Visit Plavix 75mg asa 81mg atorvastatin 20mg Admission HPI Per Admitting Provider 43-year-old male with no significant past medical history presents with strokelike symptoms. Patient was in a summer camp. There was dance constitution party but he was just sitting and watching. Around 9 PM he noticed numbness in his right hand. He could not uncork water bottle. At the time he also felt some slurred speech and slow speech. He went to [facility] and the blood pressure was checked and [id number]. Symptoms lasted 15 to 20 minutes. EMS was called and brought him here. Patient was a stroke alert. Initial workup unremarkable. Patient denies any headache. No dizziness. Says he was ambulating okay. No blurred vision . Has some congestion. And some sore throat. No cough. No fevers. No difficulty swallowing. No chest pain. No shortness of breath. No nausea. No sweating. No abdominal pain. Normal bowel and bladder movements. Currently resting comfortably and hemodynamically stable. He did some yard work recently but did not notice any tick bites. As per history father had SD in his 50s. As per patient his brother had SVTs in his 50s. past medical history. As mentioned above past surgical history. None social history. No smoking. Alcohol rarely. No drug use. . Family history. Father had bladder cancer. Diabetes. SD in 50s. Brother had SVTs. Mother had hypertension. Admission Exam Per Admitting Provider General- Not in distress Head- atraumatic Eyes- EOMI. ENT- oropharynx clear Neck- supple, no JVD no carotid bruit Lungs- clear to auscultation no wheezing or crackles. Heart- regular rate and rhythm; no murmur, no gallop. Abdomen- normal bowel sounds, soft, nontender, no distension. Extremities- no pretibial edema, no erythema seen. Neuro- alert, oriented EOMI; no facial palsy; no dysarthria; motor 5/5 bilaterally; co ordination of movements normal, no pronator drift sensations intact Discharge Exam Constitutional WD/WN, vitals as above Respiratory normal respiratory effort, lungs clear to auscultation Cardiovascular RRR, no murmur, no edema Gastrointestinal (Abdomen) normal bowel sounds, soft, nontender, no hepatosplenomegaly Updated Medication List Medication Instructions Recorded Confirmed Type Pharmacist Discharge Consult 1 ea Not Applicable UD PRN review 01/06/24 Rx [Pharmacist Discharge Med Rec #1 unit Consult] aspirin 81 mg tablet,delayed 81 mg PO DAILY #30 tabs 01/06/24 Rx release clopidogrel 75 mg tablet 75 mg PO DAILY #20 tabs 01/06/24 Rx rosuvastatin 20 mg tablet 20 mg PO QAM #30 tabs 01/06/24 Rx Hospital Stay Data Consultations 01/04/24 23:10 ED Decision to Admit Stat 01/05/24 08:00 Consult Neurology Routine 01/05/24 14:23 Consult Cardiology Routine Procedures Performed Operation Date: 01/06/24 07:15 <No data on this case meets the specified criteria> Diagnostic Imagining Performed 01/04/24 22:19 CT angio head w con Stat CT angio neck with con Stat CT head/brain wo con Stat 01/05/24 04:22 MR brain wo/w con Urgent 01/05/24 10:53 US liver Urgent 01/05/24 12:47 US venous doppler LE BI Routine Pending Results Patient Have Any Pending Studies at Discharge: Yes (Hypercoagulable Work UP) Discharge Instructions Given to Patient (Per Discharging Provider) You were admitted for stroke like symptoms and found to have small acute ischemic stroke resulting in the right hand numbness/weakness. You were evaluated by Cardiology and Neurology. ECHO of your heart revealed an anatomical anomaly called a "patent foramen ovale"--this is present while developing in the womb, but usually closes soon after . The plan is to evaluate this opening in more depth with a "transesophageal echo" to help with surgical planning for closure. Cardiology will reach out for a day/time to schedule. Upon leaving the hospital, you will stop by Cardiology at [facility] for a holter monitor. The following medications were started this admission: -Rosuvastatin 20mg daily (next dose 01/06 in morning), indefinitely -Aspirin 81mg daily (next dose 01/06 in morning), indefinitely -Plavix 75 mg daily for 20 days (next dose 01/06 in morning) Total Time Total Time Spent Total Time Spent (In Minutes): 45
[2024-01-06] MEDS: CLOPIDOGREL BISULFATE 75 MG TAB PO ONE (10:33)
[2024-01-06] MEDS: STROKE PATIENT DISCHARGE STA (10:33)
[2024-01-06 11:49] LABS: Influenza A virus by PCR Negative (Neg); Influenza B virus by PCR Negative (Neg); RSV by PCR Negative (Neg); SARS CoV2 RNA(COVID-19) Ceph NEGATIVE (Negative)
--- NOTE | 2024-01-06 11:57 | Cardiology Progress Note ---
Date of Service January 06, 2024 Assessment & Plan (1) PFO (patent foramen ovale): (2) Acute ischemic left MCA stroke: Plan 43-year-old male presents with strokelike symptoms and MRI evidence of left MCA CVA. 2D transthoracic echocardiogram with large right to left intracardiac sh unt suggesting patent foramen ovale. ROPE score = 8 indicating high likelihood of PFO as cause of patient's symptoms/CVA. Recommend transesophageal echocardiogram for further evaluation. Risk, gianna efits, alternatives to procedure reviewed at length. Patient agreeable, however, prefers to reschedule as outpatient due to sore throat and sinus congestion. Add clopidogrel 75 mg daily. COVID-19 screen recommended. Hypercoagulable evaluation ordered. 14-day ZIO monitor to be placed today at [facility]. Referral to interventional cardiology for PFO closure. I spent a total of 55 minutes on the date of service in preparation, delivery, and documentation of the care provided to this patient, excluding any time spent in the performance of separately billed services. Admission and Anticipated Discharge Date Admission Date: January 05, 2024 Subjective 43-year-old male seen and examined at the bedside. No evidence of atrial fibrillation on telemetry. Declined transesophageal echocardiogram this a.m. due to sore throat and sinus congestion. Prefers to reschedule as outpatient. No recurrent paresthesias, numbness, or speech abnormality. Review of Systems Review of Systems: All systems reviewed & are unremarkable except as noted in Subjective Physical Exam Constitutional: well nourished; no acute distress and not ill appearing Respiratory: no respiratory distress, no labored breathing and no retractions Cardiovascular: Rate/Rhythm: regular rate and regular rhythm Heart Sounds: normal S1 and normal S2; no murmur Vessels: no JVD and no carotid bruit Extremities: no edema Gastrointestinal (Abdomen): Inspection/Auscultation: abdomen normal to inspection, + abdomen distended and normal bowel sounds Percussion/Palpation: abdomen soft; abdomen nontender, no guarding and abdomen not rigid Neurologic: CN's II-XI intact bilaterally and moves all extremities; no focal motor deficits Results & Data Vital Signs (Past 12 Hours) Vital Signs Temp Pulse Resp BP Pulse Ox Pulse Ox O2 Del Method 01/06/24 10:47 36.7 C 67 17 120/82 97 01/06/24 07:47 36.7 C 67 17 120/82 97 Room Air 01/06/24 04:22 96 01/06/24 02:43 36.6 C 67 18 127/88 96 Room Air O2 Del Method 01/06/24 10:47 01/06/24 07:47 01/06/24 04:22 Room Air 01/06/24 02:43 Laboratory Results CBC 01/06/24 Range/Units 06:25 WBC 6.16 (4.8-10.8) K/ul RBC 5.29 (4.70-6.10) M/uL Hgb 15.8 (14.0-18.0) g/dl Hct 45.3 (42.0-52.0) % Plt Count 180 (130-400) K/uL Neut # (Auto) 3.80 (1.40-6.50) K/uL Lymph # (Auto) 1.38 (1.20-3.40) K/uL [place] # (Auto) 0.63 H (0.11-0.59) K/uL Eos # (Auto) 0.29 (0.00-0.50) K/uL Baso # (Auto) 0.05 (0.00-0.20) K/uL Comprehensive Metabolic Panel 01/06/24 Range/Units 06:25 Sodium 138 (136-145) mmol/L Potassium 4.3 (3.5-5.1) mmol/L Chloride 103 (98-107) mmol/L Carbon Dioxide 29 (21-32) mmol/L BUN 11 (6-23) mg/dl Creatinine 1.07 (0.6-1.4) mg/dl Glucose 101 H (70-99(Fasting)) mg/dl Calcium 8.9 (8.6-10.3) mg/dl Intake and Output 01/05/24 01/06/24 01/06/24 22:59 06:59 14:59 Intake Total 1250 / 1250 Balance 1250 / 1250 Intake: IV 1000 / 1000 Sodium Chloride 0.9% 1,000 ml @ 1000 / 1000 80 mls/hr IV .[id number] [facility] Rx#: [id number] Oral 250 / 250 Other: Other Intake Source Patient is NPO # Unmeasured Voids 1 Weight 98.8 kg 98.8 kg Weight Measurement Method Built in Bedscale Patient Weight 01/07/24 06:59 Weight 98.8 kg
[2024-01-08 07:22] LABS: Babesia microti DNA Not Detected (Not Detected)
== END 2024-01-06 11:26 | disposition home or self-care (01) | DRG 65 ==
LOC: ED 22:23 → 2E 01-05 02:14 → SUATTDRO 01-05 02:14 → 2E 01-05 03:53